=== PATIENT | male | born 1945 | race Caucasian/White ===

== ENCOUNTER 2020-04-08 05:46 | Outpatient (REF) | payer MEDICARE, SELFPAY ==
[2020-04-08 08:39] LABS: MANUAL DIFF FLAG NO
[2020-04-08 08:58] LABS: Basophils Absolute Auto 0.1 X10*3/uL (0.0-0.2); Basophils Percent Auto 0.8 % (0-2); Eosinophils Absolute Auto 0.4 X10*3/uL (0.0-0.4); Eosinophils Percent Auto 6.9 % (0-4); Hematocrit 32.8 % (42-52); Imm Gran Abs Auto 0.02 X10*3/uL (0.00-0.03); Imm Gran Pct Auto 0.3 % (0.0-0.4); Lymphocytes Absolute Auto 1.9 X10*3/uL (1.2-4.9); Mean Corpuscular HGB Conc 33.5 g/dl (31.0-36.0); Mean Corpuscular Hemoglobin 31.4 pg (27.0-33.0); Mean Corpuscular Volume 93.7 fL (80-98); Mean Platelet Volume 8.6 fL (9.4-12.4); Monocytes Absolute Auto 0.8 X10*3/uL (0.1-1.2); Monocytes Percent Auto 12.1 % (2-11); Neutrophils Absolute Auto 3.2 X10*3/uL (2.0-8.3); Neutrophils Percent Auto 50.9 % (45-73); Platelet Count 353 X10*3/uL (160-400); Red Cell Distribution Width 12.5 % (11.0-16.0); White Blood Count 6.4 X10*3/uL (4.8-10.8)
[2020-04-08 09:12] LABS: Alanine Aminotransferase 11 U/L (0-40); Albumin Level 3.7 g/dL (3.5-5.0); Alkaline Phosphatase 66 U/L (39-117); Anion Gap 11 (12-20); Aspartate Amino Transferase 13 U/L (5-37); Bilirubin Total 0.4 mg/dL (0.0-1.0); Blood Urea Nitrogen 7 mg/dL (9-16); Calcium 8.4 mg/dL (8.4-10.2); Carbon Dioxide 27 mmol/L (22-29); Chloride 96 mmol/L (96-108); Estimated Glomerular Filt Rate > 60; Glucose Fasting 95 mg/dL (60-99); Potassium 4.2 mmol/l (3.3-5.1); Sodium 130 mmol/L (135-145); Total Protein 6.1 g/dL (6.5-8.0)
== END 2020-04-08 05:47 | disposition home or self-care (01) ==
LOC: HO.HSH3N 05:46
PROVIDERS: Visit Provider Internal Medicine
DX: R11.10 Vomiting, unspecified (principal); R19.5 Other fecal abnormalities; J44.9 Chronic obstructive pulmonary disease, unspecified
CPT/HCPCS: 36415; 80053; 85025

== ENCOUNTER 2020-04-18 10:16 | Outpatient (REF) | payer MEDICARE, SELFPAY ==
[2020-04-18 15:38] LABS: SARS COV2 PCR INHOUSE NEGATIVE (Negative)
== END 2020-04-18 10:17 | disposition home or self-care (01) ==
LOC: HO.HSH3N 10:16
PROVIDERS: Visit Provider Internal Medicine Critical Care Medicine
DX: Z20.828 Contact with and (suspected) exposure to other viral communicable diseases (principal)
CPT/HCPCS: 87635

== ENCOUNTER 2020-04-20 06:27 | Outpatient (REF) | payer MEDICARE, SELFPAY ==
[2020-04-20 10:16] LABS: Vitamin D 25-OH Total 31.7 ng/mL (>30)
== END 2020-04-20 06:28 | disposition home or self-care (01) ==
LOC: HO.HSH3N 06:27
PROVIDERS: Visit Provider Internal Medicine
DX: E55.9 Vitamin D deficiency, unspecified (principal)
CPT/HCPCS: 82306

== ENCOUNTER 2020-05-03 07:41 | Outpatient (REF) | payer MEDICARE, SELFPAY ==
[2020-05-03 08:44] LABS: MANUAL DIFF FLAG NO
[2020-05-03 08:46] LABS: Basophils Percent Auto 0.4 % (0-2); Eosinophils Absolute Auto 0.6 X10*3/uL (0.0-0.4); Eosinophils Percent Auto 7.9 % (0-4); Hematocrit 33.3 % (42-52); Hemoglobin 11.4 g/dl (14.0-18.0); Imm Gran Abs Auto 0.03 X10*3/uL (0.00-0.03); Imm Gran Pct Auto 0.4 % (0.0-0.4); Lymphocytes Absolute Auto 2.3 X10*3/uL (1.2-4.9); Lymphocytes Percent Auto 31.9 % (20-40); Mean Corpuscular HGB Conc 34.2 g/dl (31.0-36.0); Mean Corpuscular Hemoglobin 32.2 pg (27.0-33.0); Mean Corpuscular Volume 94.1 fL (80-98); Mean Platelet Volume 8.5 fL (9.4-12.4); Monocytes Absolute Auto 0.8 X10*3/uL (0.1-1.2); Neutrophils Absolute Auto 3.4 X10*3/uL (2.0-8.3); Neutrophils Percent Auto 48.4 % (45-73); Platelet Count 355 X10*3/uL (160-400); Red Blood Count 3.54 X10*6/uL (4.60-5.80); Red Cell Distribution Width 12.3 % (11.0-16.0); White Blood Count 7.1 X10*3/uL (4.8-10.8)
[2020-05-03 10:14] LABS: Alanine Aminotransferase 11 U/L (0-40); Albumin Level 3.5 g/dL (3.5-5.0); Alkaline Phosphatase 67 U/L (39-117); Anion Gap 13 (12-20); Aspartate Amino Transferase 13 U/L (5-37); Bilirubin Total 0.5 mg/dL (0.0-1.0); Blood Urea Nitrogen 7 mg/dL (9-16); Calcium 8.1 mg/dL (8.4-10.2); Carbon Dioxide 26 mmol/L (22-29); Chloride 99 mmol/L (96-108); Estimated Glomerular Filt Rate > 60; Glucose Fasting 108 mg/dL (60-99); Lipase 19 U/L (8-78); Potassium 4.5 mmol/l (3.3-5.1); Sodium 133 mmol/L (135-145); Total Protein 5.8 g/dL (6.5-8.0)
== END 2020-05-03 07:42 | disposition home or self-care (01) ==
LOC: HO.HSH3N 07:41
PROVIDERS: Visit Provider Internal Medicine
DX: K86.1 Other chronic pancreatitis (principal); F03.90 Unspecified dementia, unspecified severity, without behavioral disturbance, psychotic disturbance, mood disturbance, and anxiety; F10.10 Alcohol abuse, uncomplicated
CPT/HCPCS: 36415; 80053; 83690; 85025

== ENCOUNTER 2020-06-07 06:59 | Outpatient (REF) | payer MEDICARE, SELFPAY ==
[2020-06-07 08:23] LABS: MANUAL DIFF FLAG NO
[2020-06-07 08:28] LABS: Basophils Percent Auto 0.6 % (0-2); Eosinophils Absolute Auto 0.6 X10*3/uL (0.0-0.4); Eosinophils Percent Auto 8.6 % (0-4); Hematocrit 34.6 % (42-52); Hemoglobin 11.8 g/dl (14.0-18.0); Imm Gran Abs Auto 0.04 X10*3/uL (0.00-0.03); Imm Gran Pct Auto 0.6 % (0.0-0.4); Immature Retic Fraction 12.7 % (2.3-13.4); Lymphocytes Absolute Auto 2.6 X10*3/uL (1.2-4.9); Lymphocytes Percent Auto 38.2 % (20-40); Mean Corpuscular HGB Conc 34.1 g/dl (31.0-36.0); Mean Corpuscular Hemoglobin 31.7 pg (27.0-33.0); Mean Platelet Volume 8.8 fL (9.4-12.4); Monocytes Absolute Auto 0.8 X10*3/uL (0.1-1.2); Monocytes Percent Auto 11.3 % (2-11); Neutrophils Absolute Auto 2.8 X10*3/uL (2.0-8.3); Neutrophils Percent Auto 40.7 % (45-73); Platelet Count 378 X10*3/uL (160-400); Red Blood Count 3.72 X10*6/uL (4.60-5.80); Red Cell Distribution Width 12.3 % (11.0-16.0); Reticulocyte Percent 1.9 % (0.5-1.8); White Blood Count 6.9 X10*3/uL (4.8-10.8)
[2020-06-07 08:42] LABS: Iron 40 mcg/dL (45-160); Percent Iron Saturation 13 % (15-50); Total Iron Binding Capacity 319 mcg/dL (228-428); Unsaturated Iron Binding 279 ug/dL
[2020-06-07 09:12] LABS: Thyroid Stimulating Hormone 5.13 uIU/mL (0.32-4.0)
[2020-06-07 09:41] LABS: Vitamin B12 418 pg/mL (200-900)
[2020-06-07 09:45] LABS: Ferritin 96 ng/mL (20-250)
== END 2020-06-07 07:00 | disposition home or self-care (01) ==
LOC: HO.HSH3N 06:59
PROVIDERS: Visit Provider Internal Medicine
DX: K86.1 Other chronic pancreatitis (principal); F32.9 Major depressive disorder, single episode, unspecified
CPT/HCPCS: 36415; 82607; 82728; 82746; 83540; 84443; 85025; 85045

== ENCOUNTER 2020-07-27 10:23 | Outpatient (REF) | payer MEDICARE, SELFPAY ==
[2020-07-27 11:32] LABS: MANUAL DIFF FLAG NO
[2020-07-27 11:37] LABS: Basophils Percent Auto 0.6 % (0-2); Eosinophils Absolute Auto 0.5 X10*3/uL (0.0-0.4); Eosinophils Percent Auto 7.8 % (0-4); Hematocrit 34.2 % (42-52); Hemoglobin 11.4 g/dl (14.0-18.0); Imm Gran Abs Auto 0.04 X10*3/uL (0.00-0.03); Imm Gran Pct Auto 0.6 % (0.0-0.4); Lymphocytes Absolute Auto 2.6 X10*3/uL (1.2-4.9); Lymphocytes Percent Auto 38.5 % (20-40); Mean Corpuscular HGB Conc 33.3 g/dl (31.0-36.0); Mean Corpuscular Hemoglobin 31.3 pg (27.0-33.0); Mean Platelet Volume 8.6 fL (9.4-12.4); Monocytes Absolute Auto 0.6 X10*3/uL (0.1-1.2); Monocytes Percent Auto 8.9 % (2-11); Neutrophils Absolute Auto 2.9 X10*3/uL (2.0-8.3); Neutrophils Percent Auto 43.6 % (45-73); Platelet Count 358 X10*3/uL (160-400); Red Blood Count 3.64 X10*6/uL (4.60-5.80); Red Cell Distribution Width 12.2 % (11.0-16.0); White Blood Count 6.6 X10*3/uL (4.8-10.8)
== END 2020-07-27 10:24 | disposition home or self-care (01) ==
LOC: HO.HSH3N 10:23
PROVIDERS: Visit Provider Internal Medicine
DX: D64.9 Anemia, unspecified (principal)
CPT/HCPCS: 36415; 85025

== ENCOUNTER 2020-10-07 14:30 | Outpatient (REF) | payer MEDICARE, SELFPAY ==
[2020-10-07 14:46] LABS: Hematocrit 32.7 % (42-52); Hemoglobin 10.9 g/dl (14.0-18.0); Mean Corpuscular HGB Conc 33.3 g/dl (31.0-36.0); Mean Corpuscular Hemoglobin 30.5 pg (27.0-33.0); Mean Corpuscular Volume 91.6 fL (80-98); Mean Platelet Volume 8.2 fL (9.4-12.4); Platelet Count 471 X10*3/uL (160-400); Red Blood Count 3.57 X10*6/uL (4.60-5.80); Red Cell Distribution Width 12.3 % (11.0-16.0); White Blood Count 7.8 X10*3/uL (4.8-10.8)
[2020-10-07 15:14] LABS: Uric Acid 4.1 mg/dL (3.4-7.0)
== END 2020-10-07 14:31 | disposition home or self-care (01) ==
LOC: HO.HSH3N 14:30
PROVIDERS: Visit Provider Internal Medicine
DX: M10.9 Gout, unspecified (principal)
CPT/HCPCS: 36415; 84550; 85027

== ENCOUNTER 2020-10-11 05:44 | Outpatient (REF) | payer MEDICARE, SELFPAY ==
[2020-10-11 08:47] LABS: Erythrocyte Sedimentation Rate 77 MM/HR (0-15)
== END 2020-10-11 05:45 | disposition home or self-care (01) ==
LOC: HO.HSH3N 05:44
PROVIDERS: Visit Provider Internal Medicine
DX: D64.9 Anemia, unspecified (principal)
CPT/HCPCS: 36415; 85652

== ENCOUNTER 2020-10-18 06:42 | Outpatient (REF) | payer MEDICARE, SELFPAY ==
[2020-10-18 08:45] LABS: MANUAL DIFF FLAG NO
[2020-10-18 09:21] LABS: Basophils Absolute Auto 0.1 X10*3/uL (0.0-0.2); Basophils Percent Auto 0.7 % (0-2); Eosinophils Absolute Auto 0.4 X10*3/uL (0.0-0.4); Eosinophils Percent Auto 5.1 % (0-4); Hemoglobin 10.7 g/dl (14.0-18.0); Imm Gran Abs Auto 0.05 X10*3/uL (0.00-0.03); Imm Gran Pct Auto 0.6 % (0.0-0.4); Lymphocytes Absolute Auto 1.7 X10*3/uL (1.2-4.9); Lymphocytes Percent Auto 20.1 % (20-40); Mean Corpuscular HGB Conc 33.4 g/dl (31.0-36.0); Mean Corpuscular Hemoglobin 30.4 pg (27.0-33.0); Mean Corpuscular Volume 90.9 fL (80-98); Mean Platelet Volume 8.4 fL (9.4-12.4); Monocytes Percent Auto 12.5 % (2-11); Neutrophils Absolute Auto 5.1 X10*3/uL (2.0-8.3); Platelet Count 638 X10*3/uL (160-400); Red Blood Count 3.52 X10*6/uL (4.60-5.80); Red Cell Distribution Width 12.5 % (11.0-16.0); White Blood Count 8.3 X10*3/uL (4.8-10.8)
== END 2020-10-18 06:43 | disposition home or self-care (01) ==
LOC: HO.HSH3N 06:42
PROVIDERS: Visit Provider Internal Medicine
DX: D64.9 Anemia, unspecified (principal)
CPT/HCPCS: 36415; 85025

== ENCOUNTER 2020-10-20 06:19 | Outpatient (REF) | payer MEDICARE, SELFPAY ==
[2020-10-20 08:37] LABS: Rheumatoid Factor < 15.0 IU/mL (<15.0)
[2020-10-21 22:42] LABS: Anti Nuclear Antibody Pattern Nuclear, Homogeneous; Anti Nuclear Antibody Screen POSITIVE (NEGATIVE)
== END 2020-10-20 06:20 | disposition home or self-care (01) ==
LOC: HO.HSH3N 06:19
PROVIDERS: Visit Provider Internal Medicine
DX: M25.50 Pain in unspecified joint (principal)
CPT/HCPCS: 36415; 86038; 86039; 86431

== ENCOUNTER 2021-01-11 | Outpatient (REF) | payer MEDICARE, SELFPAY ==
[2021-01-11 09:09] LABS: Anion Gap 18 (12-20); Blood Urea Nitrogen 8 mg/dL (9-16); Calcium 8.3 mg/dL (8.4-10.2); Carbon Dioxide 22 mmol/L (22-29); Chloride 94 mmol/L (96-108); Estimated Glomerular Filt Rate > 60; Glucose Fasting 109 mg/dL (60-99); Potassium 4.5 mmol/L (3.3-5.1); Sodium 129 mmol/L (135-145)
== END 2021-01-11 00:01 | disposition home or self-care (01) ==
LOC: HO.HSH3N
PROVIDERS: Visit Provider Nurse Practitioner Acute Care
DX: E03.9 Hypothyroidism, unspecified (principal); E87.1 Hypo-osmolality and hyponatremia
CPT/HCPCS: 36415; 80048; 84443

== ENCOUNTER 2021-01-31 14:42 | Outpatient (REF) | payer MEDICARE, SELFPAY ==
[2021-01-31 15:03] LABS: MANUAL DIFF FLAG NO
[2021-01-31 15:05] LABS: Basophils Percent Auto 0.4 % (0-2); Eosinophils Absolute Auto 0.2 X10*3/uL (0.0-0.4); Eosinophils Percent Auto 1.7 % (0-4); Hematocrit 29.8 % (42-52); Hemoglobin 9.1 g/dl (14.0-18.0); Imm Gran Abs Auto 0.09 X10*3/uL (0.00-0.03); Imm Gran Pct Auto 0.8 % (0.0-0.4); Lymphocytes Absolute Auto 2.2 X10*3/uL (1.2-4.9); Lymphocytes Percent Auto 20.1 % (20-40); Mean Corpuscular HGB Conc 30.5 g/dl (31.0-36.0); Mean Corpuscular Hemoglobin 27.8 pg (27.0-33.0); Mean Corpuscular Volume 91.1 fL (80-98); Mean Platelet Volume 8.7 fL (9.4-12.4); Monocytes Absolute Auto 0.9 X10*3/uL (0.1-1.2); Monocytes Percent Auto 8.2 % (2-11); Neutrophils Absolute Auto 7.5 X10*3/uL (2.0-8.3); Neutrophils Percent Auto 68.8 % (45-73); Platelet Count 824 X10*3/uL (160-400); Red Blood Count 3.27 X10*6/uL (4.60-5.80); Red Cell Distribution Width 14.9 % (11.0-16.0); White Blood Count 10.9 X10*3/uL (4.8-10.8)
[2021-01-31 15:23] LABS: Anion Gap 17 (12-20); Blood Urea Nitrogen 15 mg/dL (9-16); C Reactive Protein 25.12 mg/dL (< or = 0.50); Calcium 8.7 mg/dL (8.4-10.2); Carbon Dioxide 25 mmol/L (22-29); Chloride 105 mmol/L (96-108); Estimated Glomerular Filt Rate > 60; Glucose Random 100 mg/dL (60-115); Potassium 4.5 mmol/L (3.3-5.1); Sodium 142 mmol/L (135-145)
[2021-01-31 15:34] LABS: Valproate 28.5 mcg/mL (50.0-100.0)
[2021-01-31 16:15] LABS: Erythrocyte Sedimentation Rate 111 MM/HR (0-15)
== END 2021-01-31 14:43 | disposition home or self-care (01) ==
LOC: HO.HSH3N 14:42
PROVIDERS: Visit Provider Nurse Practitioner Acute Care
DX: M13.80 Other specified arthritis, unspecified site (principal); E87.1 Hypo-osmolality and hyponatremia; Z79.899 Other long term (current) drug therapy
CPT/HCPCS: 36415; 80048; 80164; 85025; 85652; 86140

== ENCOUNTER 2021-03-20 06:03 | Outpatient (REF) | payer MEDICARE, SELFPAY ==
[2021-03-20 08:26] LABS: MANUAL DIFF FLAG NO
[2021-03-20 08:39] LABS: Basophils Percent Auto 0.2 % (0-2); Eosinophils Percent Auto 0.4 % (0-4); Hematocrit 31.4 % (42-52); Hemoglobin 10.2 g/dl (14.0-18.0); Imm Gran Abs Auto 0.22 X10*3/uL (0.00-0.03); Lymphocytes Absolute Auto 3.2 X10*3/uL (1.2-4.9); Lymphocytes Percent Auto 29.3 % (20-40); Mean Corpuscular HGB Conc 32.5 g/dl (31.0-36.0); Mean Corpuscular Hemoglobin 30.5 pg (27.0-33.0); Mean Platelet Volume 8.4 fL (9.4-12.4); Monocytes Absolute Auto 0.8 X10*3/uL (0.1-1.2); Monocytes Percent Auto 7.7 % (2-11); Neutrophils Absolute Auto 6.5 X10*3/uL (2.0-8.3); Neutrophils Percent Auto 60.4 % (45-73); Platelet Count 409 X10*3/uL (160-400); Red Blood Count 3.34 X10*6/uL (4.60-5.80); Red Cell Distribution Width 18.3 % (11.0-16.0); White Blood Count 10.8 X10*3/uL (4.8-10.8)
[2021-03-20 08:42] LABS: Anion Gap 13 (12-20); Blood Urea Nitrogen 10 mg/dL (9-16); C Reactive Protein 1.11 mg/dL (< or = 0.50); Calcium 8.8 mg/dL (8.4-10.2); Carbon Dioxide 30 mmol/L (22-29); Chloride 94 mmol/L (96-108); Estimated Glomerular Filt Rate > 60; Glucose Fasting 106 mg/dL (60-99); Potassium 4.7 mmol/L (3.3-5.1); Sodium 132 mmol/L (135-145)
[2021-03-20 09:19] LABS: Erythrocyte Sedimentation Rate 18 MM/HR (0-15)
== END 2021-03-20 06:04 | disposition home or self-care (01) ==
LOC: HO.HSH3N 06:03
PROVIDERS: Visit Provider Nurse Practitioner Acute Care
DX: M31.6 Other giant cell arteritis (principal)
CPT/HCPCS: 36415; 80048; 85025; 85652; 86140

== ENCOUNTER 2021-05-05 06:04 | Outpatient (REF) | payer MEDICARE, SELFPAY ==
[2021-05-05 08:10] LABS: Alanine Aminotransferase 18 U/L (0-40); Albumin Level 3.7 g/dL (3.5-5.0); Alkaline Phosphatase 52 U/L (39-117); Anion Gap 13 (12-20); Aspartate Amino Transferase 10 U/L (5-37); Bilirubin Direct < 0.2 mg/dL (0.0-0.5); Bilirubin Total 0.3 mg/dL (0.0-1.0); Blood Urea Nitrogen 18 mg/dL (9-16); Calcium 8.7 mg/dL (8.4-10.2); Carbon Dioxide 30 mmol/L (22-29); Chloride 99 mmol/L (96-108); Estimated Glomerular Filt Rate > 60; Glucose Random 80 mg/dL (60-115); Iron 34 mcg/dL (45-160); Percent Iron Saturation 11 % (15-50); Potassium 4.3 mmol/L (3.3-5.1); Sodium 138 mmol/L (135-145); Total Iron Binding Capacity 300 mcg/dL (228-428); Total Protein 5.8 g/dL (6.5-8.0); Unsaturated Iron Binding 266 ug/dL
[2021-05-11 11:26] LABS: Vitamin B1 22 nmol/L (8-30)
== END 2021-05-05 06:05 | disposition home or self-care (01) ==
LOC: HO.HSH3N 06:04
PROVIDERS: Visit Provider Nurse Practitioner Acute Care
DX: D64.9 Anemia, unspecified (principal)
CPT/HCPCS: 36415; 80048; 80076; 83540; 84425

== ENCOUNTER 2021-07-17 07:23 | Outpatient (REF) | payer MEDICARE, SELFPAY ==
[2021-07-17 10:16] LABS: Alanine Aminotransferase 27 U/L (0-40); Alkaline Phosphatase 47 U/L (39-117); Anion Gap 17 (12-20); Aspartate Amino Transferase 19 U/L (5-37); Bilirubin Total 0.3 mg/dL (0.0-1.0); Blood Urea Nitrogen 9 mg/dL (9-16); C Reactive Protein 0.62 mg/dL (< or = 0.50); Calcium 9.3 mg/dL (8.4-10.2); Carbon Dioxide 25 mmol/L (22-29); Chloride 97 mmol/L (96-108); Estimated Glomerular Filt Rate > 60; Glucose Random 141 mg/dL (60-115); Potassium 4.4 mmol/L (3.3-5.1); Sodium 135 mmol/L (135-145); Total Protein 6.7 g/dL (6.5-8.0)
[2021-07-17 10:36] LABS: Vitamin D 25-OH Total 46.6 ng/mL (>30)
== END 2021-07-17 07:24 | disposition home or self-care (01) ==
LOC: HO.HSH3N 07:23
PROVIDERS: Visit Provider Nurse Practitioner Acute Care
DX: F39 Unspecified mood [affective] disorder (principal); Z79.899 Other long term (current) drug therapy
CPT/HCPCS: 36415; 80053; 80164; 82306; 85025; 85652; 86140

== ENCOUNTER 2021-07-18 06:28 | Outpatient (REF) | payer MEDICARE, SELFPAY ==
[2021-07-18 07:42] LABS: MANUAL DIFF FLAG NO
[2021-07-18 07:44] LABS: Basophils Percent Auto 0.3 % (0-2); Eosinophils Absolute Auto 0.1 X10*3/uL (0.0-0.4); Hematocrit 33.7 % (42.0-52.0); Hemoglobin 10.9 g/dl (14.0-18.0); Imm Gran Pct Auto 1.8 % (0.0-0.4); Lymphocytes Absolute Auto 4.9 X10*3/uL (1.2-4.9); Lymphocytes Percent Auto 43.8 % (20-40); Mean Corpuscular HGB Conc 32.3 g/dl (31.0-36.0); Mean Corpuscular Hemoglobin 32.6 pg (27.0-33.0); Mean Corpuscular Volume 100.9 fL (80.0-98.0); Mean Platelet Volume 8.5 fL (9.4-12.4); Monocytes Absolute Auto 0.8 X10*3/uL (0.1-1.2); Monocytes Percent Auto 7.3 % (2-11); Neutrophils Absolute Auto 5.1 x10*3/uL (2.0-8.3); Neutrophils Percent Auto 45.8 % (45-73); Platelet Count 443 X10*3/uL (160-400); Red Blood Count 3.34 X10*6/uL (4.60-5.80); Red Cell Distribution Width 13.1 % (11.0-16.0); White Blood Count 11.1 X10*3/uL (4.8-10.8)
[2021-07-18 08:22] LABS: Erythrocyte Sedimentation Rate 21 MM/HR (0-15)
== END 2021-07-18 06:29 | disposition home or self-care (01) ==
LOC: HO.HSH3N 06:28
PROVIDERS: Visit Provider Nurse Practitioner Acute Care
DX: F39 Unspecified mood [affective] disorder (principal)
CPT/HCPCS: 36415; 85025; 85652

== ENCOUNTER 2021-08-19 03:54 | Emergency (ER) | payer MEDICARE, SELFPAY ==
--- NOTE | ~2021-08-19 | CT_ITS ---
EXAMINATION: CT ABDOMEN AND PELVIS WITH CONTRAST CLINICAL INFORMATION: Right upper quadrant pain COMPARISON: None TECHNIQUE: Multidetector volumetric images were obtained from the superior aspect of the liver through the pubic symphysis following administration 85 mL of Omnipaque 350 intravenous contrast. Sagittal and coronal reformatted images were obtained on the technologist's workstation. Oral contrast: Yes This CT examination was performed using dose optimization techniques as appropriate, variously including the following: *Automated exposure control *Adjustment of mA and/or kV according to patient size (this includes techniques or standardized protocols for targeted exams where dose is matched to indication/reason for exam; i.e. extremities or head) *Use of iterative reconstruction technique DLP: 562 mGy-cm FINDINGS: LUNG BASES: The visualized lung bases are unremarkable. LIVER, GALLBLADDER, AND BILIARY TREE: The liver is normal in size, shape, and attenuation. No focal hepatic lesion or biliary ductal dilatation is present. The gallbladder is normal in size. No gallstones are appreciated by CT scan. The gallbladder wall appears slightly thickened and indistinct. Appearance is questionable for possible cholecystitis. PANCREAS: Unremarkable. SPLEEN: Unremarkable. ADRENAL GLANDS: Unremarkable. KIDNEYS AND URETERS: The kidneys are normal in size, shape, and attenuation. No hydronephrosis, hydroureter, or calculi seen. No perinephric stranding. BLADDER: The bladder wall is slightly trabeculated. GASTROINTESTINAL TRACT: The small and large bowel are unremarkable. The appendix is not identified with certainty. There are no inflammatory changes seen in the right lower quadrant. There is an esophageal hernia. ABDOMINAL WALL: Small umbilical hernia containing fat. LYMPH NODES: Normal. VASCULAR: Atherosclerotic disease. No aneurysm. PELVIC VISCERA: Unremarkable. OSSEOUS STRUCTURES: There are degenerative changes of the spine. There are mild compression fractures of the T12 and L3 vertebral bodies. The L3 vertebral body superior endplate appears slightly sclerotic and may be more recent. Clinical correlation recommended. CT/CT abdomen pelvis w con IMPRESSION: Normal size gallbladder. No gallstones seen by CT scan. The gallbladder wall appears slightly thickened and indistinct. Possible cholecystitis should be considered. Esophageal hernia. Slightly trabeculated bladder wall. T12 and L3 vertebral body compression fractures. Fleischner guidelines were followed.
--- NOTE | ~2021-08-19 | US_ITS ---
EXAMINATION: US ABDOMEN LIMITED CLINICAL INFORMATION: Right upper quadrant pain. COMPARISON: CT abdomen and pelvis earlier this morning TECHNIQUE: Real-time imaging of the gallbladder was performed upon request. FINDINGS: The gallbladder is physiologically distended. Several mobile gallstones are noted. Echogenic bile is also appreciated. There is mild gallbladder wall thickening measuring up to 4 mm. A trace amount of fluid is present within the gallbladder wall. Sonographic Darnell's sign was elicited. The common bile duct is normal in size measuring 4 mm. US/US abdomen limited IMPRESSION: Cholelithiasis. Other ultrasound findings suggest possible acute cholecystitis. Clinical correlation is recommended.
[2021-08-19 04:06] VITALS: BP 167/92; BP 180/100; PULSE 110; PULSE 96; RESP 20; TEMP 36.6; O2SAT 98; O2SAT 99; BMI 25.4
[2021-08-19 04:33] LABS: MANUAL DIFF FLAG NO
[2021-08-19 04:35] LABS: Basophils Percent Auto 0.3 % (0-2); Eosinophils Absolute Auto 0.1 X10*3/uL (0.0-0.4); Eosinophils Percent Auto 1.1 % (0-4); Hematocrit 37.9 % (42.0-52.0); Hemoglobin 12.6 g/dl (14.0-18.0); Imm Gran Abs Auto 0.12 X10*3/uL (0.00-0.03); Lymphocytes Percent Auto 32.5 % (20-40); Mean Corpuscular HGB Conc 33.2 g/dl (31.0-36.0); Mean Corpuscular Hemoglobin 33.1 pg (27.0-33.0); Mean Corpuscular Volume 99.5 fL (80.0-98.0); Mean Platelet Volume 8.4 fL (9.4-12.4); Monocytes Absolute Auto 0.9 X10*3/uL (0.1-1.2); Monocytes Percent Auto 7.5 % (2-11); Neutrophils Absolute Auto 7.1 x10*3/uL (2.0-8.3); Neutrophils Percent Auto 57.6 % (45-73); Platelet Count 381 X10*3/uL (160-400); Red Blood Count 3.81 X10*6/uL (4.60-5.80); Red Cell Distribution Width 12.9 % (11.0-16.0); White Blood Count 12.3 X10*3/uL (4.8-10.8)
--- NOTE | 2021-08-19 04:57 | ECG_ITS ---
Test Reason : abd pain Blood Pressure : / mmHG Vent. Rate : 085 BPM Atrial Rate : 085 BPM P-R Int : 130 ms QRS Dur : 076 ms QT Int : 368 ms P-R-T Axes : 044 029 055 degrees QTc Int : 437 ms Normal sinus rhythm Normal ECG No previous ECGs available Referred By: Penny Hale Electronically Signed By:YADIEL KAPOOR MD
[2021-08-19 04:58] LABS: Alanine Aminotransferase 18 U/L (0-40); Albumin Level 4.1 g/dL (3.5-5.0); Alkaline Phosphatase 43 U/L (39-117); Anion Gap 19 (12-20); Aspartate Amino Transferase 27 U/L (5-37); Bilirubin Total 0.2 mg/dL (0.0-1.0); Blood Urea Nitrogen 14 mg/dL (9-16); Calcium 9.6 mg/dL (8.4-10.2); Carbon Dioxide 24 mmol/L (22-29); Chloride 99 mmol/L (96-108); Creatinine Clr Calc Pharmacy 76.6; Estimated Glomerular Filt Rate > 60; Glucose Random 110 mg/dL (60-115); Lipase 25 U/L (8-78); Potassium 4.8 mmol/L (3.3-5.1); Sodium 137 mmol/L (135-145)
--- NOTE | 2021-08-19 05:58 | ED_ITS ---
HPI - Abdominal Pain General Chief Complaint: Abdominal Pain Stated Complaint: R rib pain Time Seen by Provider: 08/19/21 04:57 Source: patient Mode of arrival: EMS History of Present Illness HPI narrative: 75-year-old male without significant past medical history states that he woke up to right upper quadrant abdominal pain that radiates around the posterior edge of his ribs that has been associated with nausea and vomiting as well as chills denies any diarrhea or urinary symptoms and otherwise denies any shortness of breath or chest pain. Related Data Allergies Allergy/AdvReac Type Severity Reaction Status Date / Time No Known Allergies Allergy Verified 08/19/21 04:17 Review of Systems Review of Systems Pertinent positives and negatives as stated in HPI 10 point review of systems is otherwise negative. PMFSH Past Medical History Source: nursing notes reviewed Social History Social History Advance Directives: No Physical Exam ED Vital Signs: Vital Signs - 24 hr 08/19/21 04:06 08/19/21 06:32 08/19/21 07:35 Temperature 97.8 F 98.0 F 97.7 F Pulse Rate 96 86 83 Respiratory Rate 20 16 19 Blood Pressure 167/92 H 126/76 104/61 Pulse Oximetry 99 98 98 BMI result Body Mass Index 25.4 VITAL SIGNS: Reviewed. GENERAL: Well developed, well nourished, in no acute distress. HEAD: Normocephalic/atraumatic EYES: PERRLA, EOMI OROPHARYNX: no oral lesions noted, posterior pharynx clear NECK: Supple, no adenopathy LUNGS: Normal breath sounds. No adventitious sounds or accessory muscle use. SpO2<99> CARDIOVASCULAR: Regular rate and rhythm without noted murmurs, no JVD or lower extremity edema. ABDOMEN: Soft, tenderness at the right upper quadrant, Darnell's positive,, non- distended with bowel sounds. SKIN: Inspection of the skin reveals no rashes NEUROLOGIC: Alert and oriented x 4. Strength and sensation to light touch were grossly intact x 4. Course Course Course Narrative: 75-year-old male with history and clinical presentation suggestive of either cholecystitis or pneumonia, suspect likely cholecystitis based on clinical exam and on review of all investigations patient is noted to have leukocytosis And received antibiotics. 0430: Suspect infection. Review of all investigations findings most consistent with cholecystitis and on ultrasound noted cholelithiasis with gallbladder wall thickening. Case was discussed with Dr. Kulkarni who accepts admission and plans for surgery. MDM - Abdominal Pain Lab Data Result diagrams: 08/19/21 04:28 08/19/21 04:28 Labs: Lab Results 08/19/21 08/19/21 08/19/21 Range/Units 04:28 04:28 06:15 WBC 12.3 H (4.8-10.8) X10*3/uL RBC 3.81 L (4.60-5.80) X10*6/uL Hgb 12.6 L (14.0-18.0) g/dl Hct 37.9 L (42.0-52.0) % MCV 99.5 H (80.0-98.0) fL MCH 33.1 H (27.0-33.0) pg MCHC 33.2 (31.0-36.0) g/dl RDW 12.9 (11.0-16.0) % Plt Count 381 (160-400) X10*3/uL MPV 8.4 L (9.4-12.4) fL Immature Gran % (Auto) 1.0 H (0.0-0.4) % Neut % (Auto) 57.6 (45-73) % Lymph % (Auto) 32.5 (20-40) % [place] % (Auto) 7.5 (2-11) % Eos % (Auto) 1.1 (0-4) % Baso % (Auto) 0.3 (0-2) % Lymph # (Auto) 4.0 (1.2-4.9) X10*3/uL [place] # (Auto) 0.9 (0.1-1.2) X10*3/uL Eos # (Auto) 0.1 (0.0-0.4) X10*3/uL Baso # (Auto) 0.0 (0.0-0.2) X10*3/uL Abs Immat Gran (auto) 0.12 H (0.00-0.03) X10*3/uL Absolute Neuts (auto) 7.1 (2.0-8.3) x10*3/uL Absolute Nucleated RBC 0.000 (0.0-0.012) X10*3/uL Nucleated RBC % (auto) 0.0 (0.0-0.2) /100WBC Sodium 137 (135-145) mmol/L Potassium 4.8 (3.3-5.1) mmol/L Chloride 99 (96-108) mmol/L Carbon Dioxide 24 (22-29) mmol/L Anion Gap 19 (12-20) BUN 14 D (9-16) mg/dL Creatinine 0.82 (0.5-1.4) mg/dL Estim Creat Clear Calc 76.6 Estimated GFR > 60 Random Glucose 110 (60-115) mg/dL Lactic Acid (0.5-2.0) mmol/L Calcium 9.6 (8.4-10.2) mg/dL Total Bilirubin 0.2 (0.0-1.0) mg/dL AST 27 D (5-37) U/L ALT 18 (0-40) U/L Alkaline Phosphatase 43 (39-117) U/L Total Protein 7.0 (6.5-8.0) g/dL Albumin 4.1 (3.5-5.0) g/dL Lipase 25 (8-78) U/L COVID-19 ([facility]) Negative (Negative) COVID-19 Clin Com See Note 08/19/21 Range/Units 06:30 WBC (4.8-10.8) X10*3/uL RBC (4.60-5.80) X10*6/uL Hgb (14.0-18.0) g/dl Hct (42.0-52.0) % MCV (80.0-98.0) fL MCH (27.0-33.0) pg MCHC (31.0-36.0) g/dl RDW (11.0-16.0) % Plt Count (160-400) X10*3/uL MPV (9.4-12.4) fL Immature Gran % (Auto) (0.0-0.4) % Neut % (Auto) (45-73) % Lymph % (Auto) (20-40) % [place] % (Auto) (2-11) % Eos % (Auto) (0-4) % Baso % (Auto) (0-2) % Lymph # (Auto) (1.2-4.9) X10*3/uL [place] # (Auto) (0.1-1.2) X10*3/uL Eos # (Auto) (0.0-0.4) X10*3/uL Baso # (Auto) (0.0-0.2) X10*3/uL Abs Immat Gran (auto) (0.00-0.03) X10*3/uL Absolute Neuts (auto) (2.0-8.3) x10*3/uL Absolute Nucleated RBC (0.0-0.012) X10*3/uL Nucleated RBC % (auto) (0.0-0.2) /100WBC Sodium (135-145) mmol/L Potassium (3.3-5.1) mmol/L Chloride (96-108) mmol/L Carbon Dioxide (22-29) mmol/L Anion Gap (12-20) BUN (9-16) mg/dL Creatinine (0.5-1.4) mg/dL Estim Creat Clear Calc Estimated GFR Random Glucose (60-115) mg/dL Lactic Acid 1.6 (0.5-2.0) mmol/L Calcium (8.4-10.2) mg/dL Total Bilirubin (0.0-1.0) mg/dL AST (5-37) U/L ALT (0-40) U/L Alkaline Phosphatase (39-117) U/L Total Protein (6.5-8.0) g/dL Albumin (3.5-5.0) g/dL Lipase (8-78) U/L COVID-19 ([facility]) (Negative) COVID-19 Clin Com ECG Data Attestation: I personally reviewed and interpreted this ECG as follows: Prior ECG tracings: not available for review Interpretation: NSR, HR - 85, no STEMI, MT /QRS /QTC are within normal limits. Discharge Plan Discharge Clinical Impression: Cholecystitis Patient Disposition: Admitted As Inpatient
[2021-08-19] MEDS: Ketorolac Tromethamine 30 MG/ML VIAL 15 MG IVPUSH (06:05)
[2021-08-19 06:32] VITALS: BP 126/76; PULSE 86; RESP 16; TEMP 36.7; O2SAT 98
[2021-08-19] MEDS: Piperacillin Sodium/Tazobactam 3.375 GM in 0.9 % Sodium Chloride 50 ML IV (06:39)
[2021-08-19 06:45] LABS: Lactic Acid 1.6 mmol/L (0.5-2.0)
[2021-08-19 06:51] LABS: COVID-19 Test Negative (Negative)
[2021-08-19] MEDS: iohexoL 350 MG/ML 100 ML INFUS..BTL 85 ML IV (06:56)
[2021-08-19 07:35] VITALS: BP 104/61; PULSE 83; RESP 19; TEMP 36.5; O2SAT 98
--- NOTE | 2021-08-19 10:01 | PC.NURSE ---
Patient insisting to use restroom instead of using urinal at the bedside although he is unsteady on his feet. Verbally abusive to staff, swearing. When this RN asked patient for urine sample per the provider, patient states How about I piss on them . Patient refusing red, high fall risk socks; patient refusing staff to accompany him into the restroom. Wheelchair provided to assist patient to and from restroom.
--- NOTE | 2021-08-19 10:05 | P.CONGS_ITS ---
History of Present Illness Consult details Consult date: 08/19/21 Requesting physician: Penny Hale Narrative: 75-year-old male patient, resident of the [facility] presenting with a sudden onset of pain in the right lateral chest while turning in bed. He reports the pain is sharp and nonradiating, the pain increases with motion including twisting and turning. He denies a previous episode of similar pain. He denies other medical problems and only previous surgeries are appendectomy. The pain was associated with nausea and vomiting which began after the then set of pain. He subsequently presented to the emergency department. Workup reveale d a mildly elevated WBC of 12.3. Electrolytes and COVID [address] of the abdomen pelvis revealed a normal size gallbladder with no gallstones seen by CT. The gallbladder wall appears slightly thickened and indistinct. This is felt to be possibly due to cholecystitis. An esophageal hernia was identified and slightly trabeculated bladder wall. T12 and L3 vertebral body compression fractures were identified. Subsequent ultrasound of the abdomen does reveal gallstones within the gallbladder with pericholecystic fluid and a sonographic Darnell sign. Common bile duct is normal. Findings are suggestive of acute cholecystitis. Review of Systems Constitutional: Constitutional: Denies chills, Denies fever(s), Denies headache(s) and Denies poor appetite ENT: Denies dizziness and Denies headache(s) Cardiovascular: Cardiovascular: Denies chest pain, Denies rapid heart rate, Denies palpitations and Denies slow heart rate Respiratory: Respiratory: Denies chest congestion, Denies cough, Denies pain on inspiration and Denies wheezing Gastrointestinal: Gastrointestinal: Reports abdominal pain, Denies bloating, Denies change in stool character, Denies constipation, Denies diarrhea, Reports nausea, Reports vomiting and Denies hematemesis Musculoskeletal: Musculoskeletal: Denies back pain, Denies arthralgias, Denies joint swelling and Denies numbness Integumentary/Breasts: Skin/Breast: Denies change in pigmentation, Denies erythema and Denies rash Neurologic: Denies dizziness, Denies headache(s) and Denies numbness Psychiatric: Psychiatric: Denies anxiety and Denies depression Endocrine: Endocrine: Denies palpitations Hematologic/Lymphatic: Hematologic/Lymphatic: Denies easy bleeding, Denies easy bruising and Denies lymphadenopathy Allergic/Immunologic: Allergic/Immunologic: Denies wheezing PMFSH Surgical History Surgical History (Updated 08/19/21 @ 10:12 by Brayan Kulkarni MD) Hx of appendectomy Social History Social History Advance Directives: No Meds Allergies Allergy/AdvReac Type Severity Reaction Status Date / Time No Known Allergies Allergy Verified 08/19/21 04:17 Physical Exam Vital Signs: Vital Signs: Last Vital Signs Temp 97.7 F 08/19/21 07:35 Pulse 83 08/19/21 07:35 Resp 19 08/19/21 07:35 BP 104/61 08/19/21 07:35 Pulse Ox 98 08/19/21 07:35 BMI result Body Mass Index 25.4 Const: General: cooperative, comfortable and well developed Nutritional Appearance: well nourished Orientation/consciousness: patient oriented x3 Eyes: Sclerae: sclerae normal EOM: EOMs intact bilaterally Neck: Neck: Yes normal visual inspection Chest: Other: Tender over the right lateral chest wall, which sharp point tenderness suggestive of a rib fracture Resp: Effort & Inspection: normal respiratory effort, no cough, no respiratory distress and no stridor Cardio: Jugular venous distension: no JVD GI: Inspection: Yes normal to inspection Palpation (GI): Soft to palpation, Tenderness to palpation present (GI) in the RUQ, no guarding and not rigid Skin: General skin exam: dry skin Rashes: no rashes Neuro: General: patient oriented x3 and no focal motor deficits Extrem: General: Yes full ROM and Yes no clubbing, cyanosis or edema Psych: Appearance: grossly normal Results Labs Result diagrams: 08/19/21 04:28 08/19/21 04:28 Labs: Abnormal lab results 08/19/21 Range/Units 04:28 WBC 12.3 H (4.8-10.8) X10*3/uL RBC 3.81 L (4.60-5.80) X10*6/uL Hgb 12.6 L (14.0-18.0) g/dl Hct 37.9 L (42.0-52.0) % MCV 99.5 H (80.0-98.0) fL MCH 33.1 H (27.0-33.0) pg MPV 8.4 L (9.4-12.4) fL Immature Gran % (Auto) 1.0 H (0.0-0.4) % Abs Immat Gran (auto) 0.12 H (0.00-0.03) X10*3/uL Short CBC 08/19/21 Range/Units 04:28 WBC 12.3 H (4.8-10.8) X10*3/uL Hgb 12.6 L (14.0-18.0) g/dl Hct 37.9 L (42.0-52.0) % Plt Count 381 (160-400) X10*3/uL BMP 08/19/21 04:28 Sodium 137 Potassium 4.8 Chloride 99 Carbon Dioxide 24 BUN 14 D Creatinine 0.82 Calcium 9.6 Liver Function 08/19/21 Range/Units 04:28 Total Bilirubin 0.2 (0.0-1.0) mg/dL AST 27 D (5-37) U/L ALT 18 (0-40) U/L Alkaline Phosphatase 43 (39-117) U/L Albumin 4.1 (3.5-5.0) g/dL All other labs normal. Assessment and Plan (1) Cholecystitis: Status: Acute (2) Acute cholecystitis: Status: Acute Plan 75-year-old male patient presenting with a recent onset of abdominal pain in the right lower chest and right upper quadrant. Laboratories revealed an elevated WBC. CT and ultrasound revealed changes within the gallbladder suggestive of acute cholecystitis. Examination also reveals tenderness in the right chest wall and right upper quadrant. Findings are suggestive of acute cholecystitis. I reviewed the findings in detail with the patient and discussed treatment options including a laparoscopic or possible open cholecystectomy. My recommendation would be to proceed with the surgery. After a discussion of the procedure, risks, and alternatives, the patient does not wish to proceed with surgery and would like to be sent home to think about it. If he can tolerate p.o. and is reasonably comfortable would recommend discharge to home with follow-up in the office early next week. Procedures Date of Service Date of Service: 08/19/21
[2021-08-19 10:22] LABS: Appearance Urine CLEAR; Color Urine YELLOW; Glucose Urine UA NEG (NEG); Leukocyte Esterase Urine NEG (NEG); Nitrite Urine NEG (NEG); PH 7.5 (5.0-8.0); Specific Gravity - Urine <= 1.005 (1.005-1.025); UACC Culture Trigger NO; Urine Blood TRACE (NEG); Urine Ketones NEG (NEG); Urine Protein NEG (NEG-TRACE)
--- NOTE | 2021-08-19 10:36 | PHA.MEDREC ---
Pharmacy Consult ? Medication Reconciliation Pharmacy has completed the medication reconciliation. No remarkable issues. María Elena Herring, AngelitaD
[2021-08-19 10:39] LABS: Squamous Epithelial Cell Urine TRACE /LPF; WBC Urine 0 /HPF (0-4)
== END 2021-08-19 14:35 | disposition home or self-care (01) ==
PROVIDERS: Emergency Provider Student in an Organized Health Care Education/Training Program
DX: K81.0 Acute cholecystitis (principal); R10.11 Right upper quadrant pain; Z20.822 Contact with and (suspected) exposure to COVID-19
CPT/HCPCS: 36415; 74177; 76705; 80053; 81001; 83605; 83690; 85025; 87040; 87635; 93005; 96365; 96375; 99284; 99285; J1885; J2543; Q9967

== ENCOUNTER 2021-08-20 14:27 | Outpatient (REF) | payer MEDICARE, SELFPAY ==
[2021-08-20 14:45] LABS: MANUAL DIFF FLAG NO
[2021-08-20 14:46] LABS: Basophils Percent Auto 0.4 % (0-2); Eosinophils Absolute Auto 0.1 X10*3/uL (0.0-0.4); Eosinophils Percent Auto 1.1 % (0-4); Hematocrit 38.3 % (42.0-52.0); Hemoglobin 12.6 g/dl (14.0-18.0); Imm Gran Abs Auto 0.11 X10*3/uL (0.00-0.03); Imm Gran Pct Auto 1.1 % (0.0-0.4); Lymphocytes Absolute Auto 1.2 X10*3/uL (1.2-4.9); Lymphocytes Percent Auto 12.3 % (20-40); Mean Corpuscular HGB Conc 32.9 g/dl (31.0-36.0); Mean Corpuscular Hemoglobin 33.1 pg (27.0-33.0); Mean Corpuscular Volume 100.5 fL (80.0-98.0); Mean Platelet Volume 8.6 fL (9.4-12.4); Monocytes Absolute Auto 0.5 X10*3/uL (0.1-1.2); Monocytes Percent Auto 5.4 % (2-11); Neutrophils Absolute Auto 7.6 x10*3/uL (2.0-8.3); Neutrophils Percent Auto 79.7 % (45-73); Platelet Count 400 X10*3/uL (160-400); Red Blood Count 3.81 X10*6/uL (4.60-5.80); Red Cell Distribution Width 13.1 % (11.0-16.0); White Blood Count 9.6 X10*3/uL (4.8-10.8)
[2021-08-20 15:01] LABS: Alanine Aminotransferase 17 U/L (0-40); Alkaline Phosphatase 47 U/L (39-117); Anion Gap 16 (12-20); Aspartate Amino Transferase 14 U/L (5-37); Bilirubin Total 0.4 mg/dL (0.0-1.0); Blood Urea Nitrogen 15 mg/dL (9-16); Calcium 9.3 mg/dL (8.4-10.2); Carbon Dioxide 27 mmol/L (22-29); Chloride 102 mmol/L (96-108); Estimated Glomerular Filt Rate > 60; Glucose Random 99 mg/dL (60-115); Potassium 4.7 mmol/L (3.3-5.1); Sodium 140 mmol/L (135-145); Total Protein 6.4 g/dL (6.5-8.0)
== END 2021-08-20 14:28 | disposition home or self-care (01) ==
LOC: HO.HSH3N 14:27
PROVIDERS: Internal Medicine; Visit Provider Family Medicine Adult Medicine
DX: K80.10 Calculus of gallbladder with chronic cholecystitis without obstruction (principal)
CPT/HCPCS: 36415; 80053; 85025

== ENCOUNTER 2021-08-21 07:08 | Outpatient (REF) | payer MEDICARE, SELFPAY ==
[2021-08-21 08:33] LABS: MANUAL DIFF FLAG NO
[2021-08-21 08:35] LABS: Basophils Percent Auto 0.2 % (0-2); Eosinophils Absolute Auto 0.2 X10*3/uL (0.0-0.4); Eosinophils Percent Auto 1.8 % (0-4); Hematocrit 32.3 % (42.0-52.0); Hemoglobin 10.7 g/dl (14.0-18.0); Imm Gran Abs Auto 0.06 X10*3/uL (0.00-0.03); Imm Gran Pct Auto 0.7 % (0.0-0.4); Lymphocytes Absolute Auto 3.4 X10*3/uL (1.2-4.9); Lymphocytes Percent Auto 38.5 % (20-40); Mean Corpuscular HGB Conc 33.1 g/dl (31.0-36.0); Mean Corpuscular Hemoglobin 33.1 pg (27.0-33.0); Mean Platelet Volume 8.7 fL (9.4-12.4); Monocytes Absolute Auto 0.7 X10*3/uL (0.1-1.2); Monocytes Percent Auto 8.3 % (2-11); Neutrophils Absolute Auto 4.5 x10*3/uL (2.0-8.3); Neutrophils Percent Auto 50.5 % (45-73); Platelet Count 340 X10*3/uL (160-400); Red Blood Count 3.23 X10*6/uL (4.60-5.80); Red Cell Distribution Width 12.8 % (11.0-16.0); White Blood Count 8.8 X10*3/uL (4.8-10.8)
[2021-08-21 08:48] LABS: Alanine Aminotransferase 14 U/L (0-40); Albumin Level 3.4 g/dL (3.5-5.0); Alkaline Phosphatase 37 U/L (39-117); Anion Gap 13 (12-20); Aspartate Amino Transferase 11 U/L (5-37); Bilirubin Total 0.2 mg/dL (0.0-1.0); Blood Urea Nitrogen 16 mg/dL (9-16); Calcium 8.5 mg/dL (8.4-10.2); Carbon Dioxide 28 mmol/L (22-29); Chloride 103 mmol/L (96-108); Estimated Glomerular Filt Rate > 60; Glucose Random 100 mg/dL (60-115); Potassium 4.3 mmol/L (3.3-5.1); Sodium 140 mmol/L (135-145); Total Protein 5.3 g/dL (6.5-8.0)
== END 2021-08-21 07:09 | disposition home or self-care (01) ==
LOC: HO.HSH3N 07:08
PROVIDERS: Visit Provider Internal Medicine
DX: K80.10 Calculus of gallbladder with chronic cholecystitis without obstruction (principal)
CPT/HCPCS: 36415; 80053; 85025

== ENCOUNTER → 2021-09-01 11:04 | Outpatient (BNVA) | payer MEDICARE, SELFPAY | PROVIDERS: Visit Provider Surgery | DX: K81.0 Acute cholecystitis (principal) | CPT/HCPCS: 99212 ==

== ENCOUNTER 2021-09-15 11:35 | Outpatient (REF) | payer MEDICARE, SELFPAY ==
[2021-09-15 12:52] LABS: MANUAL DIFF FLAG NO
[2021-09-15 12:56] LABS: Basophils Percent Auto 0.3 % (0-2); Eosinophils Absolute Auto 0.1 X10*3/uL (0.0-0.4); Eosinophils Percent Auto 0.8 % (0-4); Hematocrit 36.7 % (42.0-52.0); Hemoglobin 11.9 g/dl (14.0-18.0); Imm Gran Abs Auto 0.09 X10*3/uL (0.00-0.03); Imm Gran Pct Auto 0.9 % (0.0-0.4); Lymphocytes Absolute Auto 1.6 X10*3/uL (1.2-4.9); Lymphocytes Percent Auto 15.5 % (20-40); Mean Corpuscular HGB Conc 32.4 g/dl (31.0-36.0); Mean Corpuscular Hemoglobin 32.6 pg (27.0-33.0); Mean Corpuscular Volume 100.5 fL (80.0-98.0); Mean Platelet Volume 8.7 fL (9.4-12.4); Monocytes Absolute Auto 0.7 X10*3/uL (0.1-1.2); Monocytes Percent Auto 6.3 % (2-11); Neutrophils Absolute Auto 7.8 x10*3/uL (2.0-8.3); Neutrophils Percent Auto 76.2 % (45-73); Platelet Count 396 X10*3/uL (160-400); Red Blood Count 3.65 X10*6/uL (4.60-5.80); Red Cell Distribution Width 12.9 % (11.0-16.0); White Blood Count 10.3 X10*3/uL (4.8-10.8)
[2021-09-15 13:05] LABS: Alanine Aminotransferase 16 U/L (0-40); Albumin Level 3.9 g/dL (3.5-5.0); Alkaline Phosphatase 43 U/L (39-117); Anion Gap 15 (12-20); Aspartate Amino Transferase 13 U/L (5-37); Bilirubin Total 0.3 mg/dL (0.0-1.0); Blood Urea Nitrogen 10 mg/dL (9-16); Calcium 9.1 mg/dL (8.4-10.2); Carbon Dioxide 26 mmol/L (22-29); Chloride 101 mmol/L (96-108); Estimated Glomerular Filt Rate > 60; Glucose Random 108 mg/dL (60-115); Potassium 4.1 mmol/L (3.3-5.1); Sodium 138 mmol/L (135-145); Total Protein 6.2 g/dL (6.5-8.0)
== END 2021-09-15 11:36 | disposition home or self-care (01) ==
LOC: HO.HSH3N 11:35
PROVIDERS: Visit Provider Nurse Practitioner Acute Care
DX: K81.9 Cholecystitis, unspecified (principal)
CPT/HCPCS: 36415; 80053; 85025

== ENCOUNTER 2021-09-18 07:49 | Day surgery (SDC) | payer MEDICARE, SELFPAY ==
[2021-09-14 15:05] VITALS: BMI 25.2
--- NOTE | 2021-09-14 15:33 | P.CONAN_ITS ---
Documented by User: Nilsa Anderson NP 09/14/21 15:37 HPI - Anesthesia Eval Consult details Narrative: 75yo M for Cholecystectomy Laparoscopic,poss open, [facility] resident Optimized per [facility] provider COUNT INCLUDES THE [facility] Active Problems Active Problems: All Active Problems (Updated 09/14/21 @ 13:53 by Chanelle Wallace, SIVA) Acute cholecystitis (Acute) COPD (chronic obstructive pulmonary disease) (Acute) Past Medical History Medical History (Updated 09/14/21 @ 13:53 by Chanelle Wallace RN) Adjustment disorder Anemia Atherosclerotic heart disease Back pain BPH (benign prostatic hyperplasia) Cervicalgia Chronic pancreatitis Chronic sinusitis COPD (chronic obstructive pulmonary disease) Cough Dementia Esophageal hernia GERD (gastroesophageal reflux disease) Giant cell arteritis Headache Hearing loss in left ear History of alcohol abuse History of bladder stone Hx of acute pancreatitis Hx of renal calculi Hx of testicular cancer Hx of traumatic brain injury Major depressive disorder Mood disorder Osteoporosis PVD (peripheral vascular disease) Smoker Temporal arteritis Surgical History Surgical History Hx of appendectomy Social History Social History Are you a primary memory care director to a significant other at home: No Alcohol intake: never Patient Tobacco Use Status: Current everyday Tobacco user Tobacco use type: Cigarette Cigarettes Per Day: 10 Are you DNR?: Yes Advance Directives: Yes Advance Directives Information Provided: No Advance Directives on File: Yes Advance Directives Date on File: 10/18/17 Meds Allergies Allergy/AdvReac Type Severity Reaction Status Date / Time No Known Allergies Allergy Verified 09/14/21 13:58 Home Medications Medication Instructions Recorded Confirmed Last Taken Type acetaminophen 325 mg tablet 650 mg PO TID 08/19/21 09/14/21 08/18/21 History alendronate 70 mg tablet 70 mg PO LANGLEY 08/19/21 09/14/21 08/13/21 History bupropion HCl 150 mg tablet,12 hr 150 mg PO DAILY 08/19/21 09/14/21 08/18/21 History sustained-release divalproex 125 mg tablet,delayed 125 mg PO BID 08/19/21 09/14/21 08/18/21 History release divalproex 250 mg tablet,delayed 250 mg PO BID 08/19/21 09/14/21 08/18/21 History release ferrous sulfate 325 mg (65 mg 325 mg PO DAILY 08/19/21 09/18/21 09/17/21 History iron) tablet fluticasone propionate 50 2 spray INTRANASAL DAILY 08/19/21 09/14/21 08/18/21 History mcg/actuation nasal spray,suspension loperamide 2 mg tablet 2 mg PO Q3H PRN 08/19/21 09/14/21 Unknown History loratadine 10 mg tablet 10 mg PO DAILY 08/19/21 09/14/21 08/18/21 History montelukast 10 mg tablet 10 mg PO BEDTIME 08/19/21 09/14/21 08/18/21 History multivitamin 1 tab PO DAILY 08/19/21 09/14/21 08/18/21 History pantoprazole 40 mg tablet,delayed 40 mg PO BEDTIME 08/19/21 09/14/21 08/18/21 History release prednisone 20 mg tablet 17.5 mg PO DAILY 08/19/21 09/01/21 08/18/21 History prochlorperazine 25 mg rectal 25 mg VA BID PRN 08/19/21 09/14/21 Unknown History suppository Exam Exam Date and Time: September 14, 2021 1533 Height,Weight and Vital Signs: Height 5 ft 9 in Weight 77.564 kg Pertinent Lab Results Pertinent Lab Results: Laboratory Tests 08/21/21 08/21/21 07:15 07:15 WBC 8.8 Hgb 10.7 L Hct 32.3 L Plt Count 340 Sodium 140 Potassium 4.3 Chloride 103 Carbon Dioxide 28 BUN 16 Creatinine 0.82 Narrative Narrative: EKG 08/2021 Vent. Rate : 085 BPM ? ? Atrial Rate : 085 BPM ?? P-R Int : 130 ms? QRS Dur : 076 ms ? ? QT Int : 368 ms ? ? ? P-R-T Axes : 044 029 055 degrees ?? QTc Int : 437 ms ? Normal sinus rhythm Normal ECG No previous ECGs available Assessment and Plan Assessment Anesthesia Assessment: Chart Reviewed Documented by User: Elan Rodriguez MD 09/18/21 09:51 COUNT INCLUDES THE [facility] Past Medical History Medical History (Updated 09/14/21 @ 13:53 by Chanelle Wallace, SIVA) Adjustment disorder Anemia Atherosclerotic heart disease Back pain BPH (benign prostatic hyperplasia) Cervicalgia Chronic pancreatitis Chronic sinusitis COPD (chronic obstructive pulmonary disease) Cough Dementia Esophageal hernia GERD (gastroesophageal reflux disease) Giant cell arteritis Headache Hearing loss in left ear History of alcohol abuse History of bladder stone Hx of acute pancreatitis Hx of renal calculi Hx of testicular cancer Hx of traumatic brain injury Major depressive disorder Mood disorder Osteoporosis PVD (peripheral vascular disease) Smoker Temporal arteritis Family History Family history of problems with anesthesia: No Surgical History Surgical History Hx of appendectomy History of Problems with Anesthesia: No Social History Social History Are you a primary memory care director to a significant other at home: No Alcohol intake: never Patient Tobacco Use Status: Current everyday Tobacco user Tobacco use type: Cigarette Cigarettes Per Day: 10 Are you DNR?: Yes Advance Directives: Yes Advance Directives Information Provided: No Advance Directives on File: Yes Advance Directives Date on File: 10/18/17 Meds Allergies Allergy/AdvReac Type Severity Reaction Status Date / Time No Known Allergies Allergy Verified 09/14/21 13:58 Home Medications Medication Instructions Recorded Confirmed Last Taken Type acetaminophen 325 mg tablet 650 mg PO TID 08/19/21 09/14/21 08/18/21 History alendronate 70 mg tablet 70 mg PO LANGLEY 08/19/21 09/14/21 08/13/21 History bupropion HCl 150 mg tablet,12 hr 150 mg PO DAILY 08/19/21 09/14/21 08/18/21 History sustained-release divalproex 125 mg tablet,delayed 125 mg PO BID 08/19/21 09/14/21 08/18/21 History release divalproex 250 mg tablet,delayed 250 mg PO BID 08/19/21 09/14/21 08/18/21 History release ferrous sulfate 325 mg (65 mg 325 mg PO DAILY 08/19/21 09/18/21 09/17/21 History iron) tablet fluticasone propionate 50 2 spray INTRANASAL DAILY 08/19/21 09/14/21 08/18/21 History mcg/actuation nasal spray,suspension loperamide 2 mg tablet 2 mg PO Q3H PRN 08/19/21 09/14/21 Unknown History loratadine 10 mg tablet 10 mg PO DAILY 08/19/21 09/14/21 08/18/21 History montelukast 10 mg tablet 10 mg PO BEDTIME 08/19/21 09/14/21 08/18/21 History multivitamin 1 tab PO DAILY 08/19/21 09/14/21 08/18/21 History pantoprazole 40 mg tablet,delayed 40 mg PO BEDTIME 08/19/21 09/14/21 08/18/21 History release prednisone 20 mg tablet 17.5 mg PO DAILY 08/19/21 09/01/21 08/18/21 History prochlorperazine 25 mg rectal 25 mg VA BID PRN 08/19/21 09/14/21 Unknown History suppository Exam Airway Mallampati Class: II TM Dist: >3cm Neck ROM: Full Denture: Upper and Lower Heart: no chest pains. Lungs: no oxygen at home. Assessment and Plan Final Anesthetic Review Family History of Problems with Anesthesia: No History of Problems with Anesthesia: No NPO: Yes ASA Class: V Final Preanesthetic Review: No Changes in Pt Med Stat, Meds/Allgs Chart Reviewed, Consent Obtained/Reviewed, Anes Risks/Benef Reviewed and DNR Form (If Appl.) Patient Risk: High Procedure Risk: Intermediate Anesthetic Plan Anesthetic Plan: GA and Agree w/ Assess. and Plan Disposition: Standard PACU
[2021-09-18] VITALS (17 sets, daily range): BP systolic 130–192; BP diastolic 77–106; PULSE 72–97; RESP 12–22; TEMP 36.1–36.5; O2SAT 87–99
--- NOTE | 2021-09-18 09:16 | MHC.SHP ---
Pre-Procedural Eval Section A Date of Service: 09/18/21 The patient is an INPATIENT: No Changes since office visit: Yes Patient answered all questions; No Cold of Flu in the past 2 weeks, No New Medical Problems and No Changes in Medication The History & Physical has been completed within 30 days and I have reviewed it.: Yes Section B Chief Complaint: Acute cholecystitis Allergies: Allergies Allergy/AdvReac Type Severity Reaction Status Date / Time No Known Allergies Allergy Verified 09/14/21 13:58 Plan Diagnosis/Plan: Unchanged I have reviewed the history and physical and performed a pertinent physical examination on my patient. No changes have occurred unless specified.
[2021-09-18] MEDS: Lactated Ringers 1,000 ML 100 ML IVCONT (09:26)
--- NOTE | 2021-09-18 10:50 | P.OP_ITS ---
Operative Note Operative Note Date of Service: 09/18/21 Narrative: Preoperative diagnosis: Acute cholecystitis Postoperative diagnosis: Same Procedure: Laparoscopic cholecystectomy Surgeon: Brayan Kulkarni MD Obiee Report Developer: JACEY Manjarrez Anesthesia: General endotracheal Indications for procedure:75 year old male with complaints of abdominal pain in the epigastrium and RUQ found on ultrasound to have multiple gallstones in the gallbladder. On exam he is noted to be tender in the right uppper quadrant. Operative findings: Non-inflamed gallbladder with multiple calculi Specimen: gallbladder Estimated blood loss:2 mls Complications: none Procedure details: Patient was brought to the OR and placed in a supine position. After administering general anesthesia the patient's abdomen was prepped with ChloraPrep and draped in a sterile fashion. Local anesthesia consisting of 0.5% Sensorcaine without epinephrine was infiltrated in a periumbilical region. A 5 mm incision was made above the umbilicus in a transverse fashion. The Veress needle was then inserted while elevating abdominal cavity with towel clips. After positive drop test the abdomen was insufflated to a pressure of 15 mm of mercury. The Veress needle was then removed and a 5 mm trocar inserted. The camera was inserted in the abdomen explored. A 12 mm trocar was then placed in the epigastrium and two 5 mm trocars placed in the right upper quadrant. The patient was placed in reverse Trendelenburg positioning and rotated to the left. The gallbladder was grasped with the fundus and retracted cephalad.. The infundibulum was then grasped and retracted away from the liver bed. The Dolphin dissected was then used to dissect the peritoneum off the infundibulum to reveal the junction with the cystic duct. Cystic artery was noted slightly medial and posterior to the cystic duct. After obtaining a critical view the cystic duct was doubly clipped and divided. The cystic artery was then doubly clipped and divided. The gallbladder was then dissected off the liver bed using electrocautery with an L hook. Hemostasis was assured all times using the electrocautery. When the gallbladder is completely dissected off the liver bed was placed in an Endo- Catch bag and brought out through the epigastric incision. The gallbladder was sent to pathology for further examination. The abdomen was then re-examined. The liver bed was irrigated and suctioned dry. No bleeding or bile leak could be identified. CO2 was then evacuated and all trocars removed. Fascia was closed at the epigastric incision using a [id number] 0 Polysorb suture. Skin was closed in all incisions using a subcuticular 4 0 Polysorb suture. Sterile dressings consisting of Steri-Strips, 2 x 2 gauze, and Tegaderm were then applied. The patient tolerated the procedure well. Sponge instrument and needle counts reported as correct. The patient was transferred to PACU in stable condition.
[2021-09-18] MEDS: fentaNYL citrate/PF 100 MCG/2 ML VIAL 25 MCG IVPUSH ×4 (11:13→11:30)
[2021-09-18] MEDS: Acetaminophen 325 MG TABLET 650 MG PO (11:43)
[2021-09-18] MEDS: oxyCODONE HCl Immed Release 5 MG TABLET PO (11:44)
== END 2021-09-18 14:21 | disposition home or self-care (01) ==
PROVIDERS: Visit Provider Surgery
PROC: 0FT44ZZ Resection of Gallbladder, Percutaneous Endoscopic Approach (ICD-10-PCS; CPT 47562; principal; 2021-09-18 09:40)
DX: K80.12 Calculus of gallbladder with acute and chronic cholecystitis without obstruction (principal); J44.9 Chronic obstructive pulmonary disease, unspecified; D64.9 Anemia, unspecified; K21.9 Gastro-esophageal reflux disease without esophagitis; I25.10 Atherosclerotic heart disease of native coronary artery without angina pectoris; F03.90 Unspecified dementia, unspecified severity, without behavioral disturbance, psychotic disturbance, mood disturbance, and anxiety; F43.20 Adjustment disorder, unspecified; H91.92 Unspecified hearing loss, left ear; Z79.51 Long term (current) use of inhaled steroids; Z79.899 Other long term (current) drug therapy; F17.210 Nicotine dependence, cigarettes, uncomplicated
CPT/HCPCS: 47562; 88304; 94660; J1100; J2370; J2405; J3010

== ENCOUNTER → 2021-09-26 13:29 | Outpatient (BNVA) | payer MEDICARE, SELFPAY | PROVIDERS: Referring Provider Nurse Practitioner Acute Care; Visit Provider Surgery | DX: K81.0 Acute cholecystitis (principal) | CPT/HCPCS: 99212 ==

== ENCOUNTER 2021-11-20 05:54 | Outpatient (REF) | payer MEDICARE, SELFPAY ==
[2021-11-20 07:53] LABS: C Reactive Protein 0.17 mg/dL (< or = 0.50)
[2021-11-20 08:34] LABS: Erythrocyte Sedimentation Rate 11 MM/HR (0-15)
== END 2021-11-20 05:55 | disposition home or self-care (01) ==
LOC: HO.HSH3N 05:54
PROVIDERS: Visit Provider Internal Medicine
DX: M31.6 Other giant cell arteritis (principal)
CPT/HCPCS: 36415; 85652; 86140

== ENCOUNTER 2022-08-13 07:23 | Outpatient (REF) | payer MEDICARE, SELFPAY ==
[2022-08-13 07:46] LABS: C Reactive Protein 0.62 mg/dL (< or = 0.50)
[2022-08-13 08:18] LABS: Erythrocyte Sedimentation Rate 28 MM/HR (0-15)
== END 2022-08-13 07:24 | disposition home or self-care (01) ==
LOC: HO.HSH3N 07:23
PROVIDERS: Visit Provider Nurse Practitioner
DX: M19.90 Unspecified osteoarthritis, unspecified site (principal)
CPT/HCPCS: 36415; 85652; 86140

== ENCOUNTER 2022-08-15 06:09 | Outpatient (REF) | payer MEDICARE, SELFPAY ==
[2022-08-15 07:04] LABS: Vitamin D 25-OH Total 44.5 ng/mL (>30)
== END 2022-08-15 06:10 | disposition home or self-care (01) ==
LOC: HO.HSH3N 06:09
PROVIDERS: Visit Provider Nurse Practitioner Acute Care
DX: M81.0 Age-related osteoporosis without current pathological fracture (principal)
CPT/HCPCS: 36415; 82306; 82310

== ENCOUNTER 2022-09-24 06:12 | Outpatient (REF) | payer MEDICARE, SELFPAY ==
[2022-09-24 06:25] LABS: MANUAL DIFF FLAG NO
[2022-09-24 06:44] LABS: Basophils Absolute Auto 0.1 X10*3/uL (0.0-0.2); Basophils Percent Auto 0.7 % (0-2); Eosinophils Absolute Auto 0.3 X10*3/uL (0.0-0.4); Eosinophils Percent Auto 4.6 % (0-4); Hematocrit 31.2 % (42.0-52.0); Hemoglobin 10.1 g/dl (14.0-18.0); Imm Gran Abs Auto 0.02 X10*3/uL (0.00-0.03); Imm Gran Pct Auto 0.3 % (0.0-0.4); Lymphocytes Absolute Auto 2.6 X10*3/uL (1.2-4.9); Lymphocytes Percent Auto 38.5 % (20-40); Mean Corpuscular HGB Conc 32.4 g/dl (31.0-36.0); Mean Corpuscular Hemoglobin 31.5 pg (27.0-33.0); Mean Corpuscular Volume 97.2 fL (80.0-98.0); Monocytes Absolute Auto 0.6 X10*3/uL (0.1-1.2); Monocytes Percent Auto 8.5 % (2-11); Neutrophils Absolute Auto 3.2 x10*3/uL (2.0-8.3); Neutrophils Percent Auto 47.4 % (45-73); Platelet Count 351 X10*3/uL (160-400); Red Blood Count 3.21 X10*6/uL (4.60-5.80); Red Cell Distribution Width 12.7 % (11.0-16.0); White Blood Count 6.7 X10*3/uL (4.8-10.8)
[2022-09-24 07:05] LABS: Alanine Aminotransferase 11 U/L (0-40); Albumin Level 3.3 g/dL (3.5-5.0); Alkaline Phosphatase 47 U/L (39-117); Anion Gap 13 (12-20); Aspartate Amino Transferase 12 U/L (5-37); Bilirubin Direct < 0.2 mg/dL (0.0-0.5); Bilirubin Total 0.2 mg/dL (0.0-1.0); Blood Urea Nitrogen 19 mg/dL (9-16); C Reactive Protein 0.65 mg/dL (< or = 0.50); Carbon Dioxide 24 mmol/L (22-29); Chloride 109 mmol/L (96-108); Cholesterol 182 mg/dL; HDL Cholesterol 36 mg/dL; LDL Cholesterol Calculated 118 mg/dl; Potassium 4.2 mmol/L (3.3-5.1); Sodium 142 mmol/L (135-145); Total Protein 5.2 g/dL (6.5-8.0); Triglycerides 143 mg/dL
[2022-09-24 07:21] LABS: Thyroid Stimulating Hormone 2.15 uIU/mL (0.32-4.0)
[2022-09-24 07:26] LABS: Erythrocyte Sedimentation Rate 31 MM/HR (0-15)
== END 2022-09-24 06:13 | disposition home or self-care (01) ==
LOC: HO.HSH3N 06:12
PROVIDERS: Visit Provider Nurse Practitioner Acute Care
DX: Z13.89 Encounter for screening for other disorder (principal)
CPT/HCPCS: 36415; 80051; 80061; 80076; 84443; 84520; 85025; 85652; 86140

== ENCOUNTER 2022-10-01 06:38 | Outpatient (REF) | payer MEDICARE, SELFPAY ==
[2022-10-01 08:04] LABS: Valproate 22.5 mcg/mL (50.0-100.0)
== END 2022-10-01 06:39 | disposition home or self-care (01) ==
LOC: HO.HSH3N 06:38
PROVIDERS: Visit Provider Nurse Practitioner Acute Care
DX: F39 Unspecified mood [affective] disorder (principal); Z79.899 Other long term (current) drug therapy
CPT/HCPCS: 36415; 80164

== ENCOUNTER 2022-10-05 16:10 | Outpatient (REF) | payer MEDICARE, SELFPAY ==
--- NOTE | ~2022-10-05 | CT_ITS ---
EXAMINATION: CT CHEST WITHOUT CONTRAST CLINICAL INFORMATION: COPD. COMPARISON: CT abdomen 08/19/2021. TECHNIQUE: Multidetector volumetric CT imaging of the chest was done. Axial MIP volume rendering provided. Sagittal and coronal reformatted images were obtained. This CT examination was performed using dose optimization techniques as appropriate, variously including the following: *Automated exposure control *Adjustment of mA and/or kV according to patient size (this includes techniques or standardized protocols for targeted exams where dose is matched to indication/reason for exam; i.e. extremities or head) *Use of iterative reconstruction technique DLP: 138 mGy-cm FINDINGS: LUNGS: Severe upper lobe predominant centrilobular emphysema. Diffusely thick-walled airways consistent with COPD. No consolidation. Scattered micronodules. 9 x 8 mm pure groundglass nodule left lower lobe series 5 image 319 . MEDIASTINUM: No adenopathy. The thoracic aorta is normal in caliber with mild atherosclerotic disease. Moderate hiatal hernia. CORONARY ARTERY CALCIFICATION: Present. LAD and RCA calcium. PLEURA: There is no pleural effusion. No pleural mass or thickening. AXILLA: No lymphadenopathy. UPPER ABDOMEN: Renal vascular calcification. Cholecystectomy. OSSEOUS STRUCTURES: Degenerative changes in the spine. Presumed bone island left lateral sixth rib. Chronic T12 compression fracture, stable. CT/CT chest wo IV con IMPRESSION: Severe emphysema. Diffusely thick-walled airways consistent with chronic airways disease. 9 x 8 mm groundglass nodule left upper lobe. 2017 Fleischner Society Recommendations for Lung Nodule(s): Follow-Up based on size (average of long- and short-axis diameters). Use most suspicious nodule for followup. Single GG lung nodule >= 6 mm: Recommend a non-contrast Chest CT at 6-12 months to confirm persistence, then additional non-contrast Chest CTs every 2 years until 5 years. These guidelines do not apply to patients younger than 35 years, immunocompromised patients, and patients with cancer. Follow up in patients with significant comorbidities as clinically warranted. For lung cancer screening, adhere to Lung-RADS guidelines. Reference: Radiology. 2017 Hayes; 284(1):228-243 Fleischner guidelines were followed.
== END 2022-10-05 16:11 | disposition home or self-care (01) ==
LOC: HO.CT 16:10
PROVIDERS: PCP Nurse Practitioner Acute Care; Visit Provider Nurse Practitioner Acute Care
DX: J44.9 Chronic obstructive pulmonary disease, unspecified (principal)
CPT/HCPCS: 71250

== ENCOUNTER 2022-10-25 16:41 | Outpatient (REF) | payer MEDICARE, SELFPAY ==
[2022-10-25 17:37] LABS: Erythrocyte Sedimentation Rate 38 MM/HR (0-15)
== END 2022-10-25 16:42 | disposition home or self-care (01) ==
LOC: HO.HSH3N 16:41
PROVIDERS: Visit Provider Nurse Practitioner Acute Care
DX: I77.6 Arteritis, unspecified (principal)
CPT/HCPCS: 36415; 85652; 86140

== ENCOUNTER 2022-11-27 07:08 | Outpatient (REF) | payer MEDICARE, SELFPAY ==
[2022-11-27 08:11] LABS: HCG Quantitative < 2 mIU/mL; Prostate Specific Antigen 0.36 ng/mL (<0.05-4.0)
[2022-11-29 13:13] LABS: Alpha Fetoprotein 5.2 ng/mL (<6.1)
== END 2022-11-27 07:09 | disposition home or self-care (01) ==
LOC: HO.HSH3N 07:08
PROVIDERS: Visit Provider Nurse Practitioner Acute Care
DX: C62.90 Malignant neoplasm of unspecified testis, unspecified whether descended or undescended (principal); Z12.5 Encounter for screening for malignant neoplasm of prostate
CPT/HCPCS: 36415; 82105; 84153; 84702

== ENCOUNTER 2023-02-01 05:34 | Outpatient (REF) | payer MEDICARE, SELFPAY ==
[2023-02-01 07:35] LABS: Anion Gap 14 (12-20); Blood Urea Nitrogen 20 mg/dL (9-16); C Reactive Protein 0.59 mg/dL (< or = 0.50); Calcium 8.8 mg/dL (8.4-10.2); Carbon Dioxide 25 mmol/L (22-29); Chloride 104 mmol/L (96-108); Estimated Glomerular Filt Rate > 60; Glucose Fasting 97 mg/dL (60-99); Potassium 4.2 mmol/L (3.3-5.1); Sodium 139 mmol/L (135-145)
[2023-02-01 07:53] LABS: Vitamin D 25-OH Total 58.7 ng/mL (>30)
[2023-02-01 07:58] LABS: Erythrocyte Sedimentation Rate 29 MM/HR (0-15)
== END 2023-02-01 05:35 | disposition home or self-care (01) ==
LOC: HO.HSH3N 05:34
PROVIDERS: Visit Provider Nurse Practitioner Acute Care
DX: M31.6 Other giant cell arteritis (principal); E55.9 Vitamin D deficiency, unspecified
CPT/HCPCS: 36415; 80048; 82306; 85652; 86140

== ENCOUNTER 2023-05-09 06:47 | Outpatient (REF) | payer MEDICARE, SELFPAY ==
[2023-05-09 07:44] LABS: Anion Gap 12 (12-20); Blood Urea Nitrogen 29 mg/dL (9-16); Calcium 8.6 mg/dL (8.4-10.2); Carbon Dioxide 28 mmol/L (22-29); Chloride 107 mmol/L (96-108); Estimated Glomerular Filt Rate > 60; Glucose Random 107 mg/dL (60-115); Potassium 4.3 mmol/L (3.3-5.1); Sodium 143 mmol/L (135-145)
== END 2023-05-09 06:48 | disposition home or self-care (01) ==
LOC: HO.HSH3N 06:47
PROVIDERS: Visit Provider Nurse Practitioner Acute Care
DX: K21.9 Gastro-esophageal reflux disease without esophagitis (principal); Z85.47 Personal history of malignant neoplasm of testis
CPT/HCPCS: 36415; 80048

== ENCOUNTER 2023-05-14 09:12 | Outpatient (REF) | payer MEDICARE, SELFPAY ==
--- NOTE | ~2023-05-14 | CT_ITS ---
STUDY: Unenhanced CT of the chest, IV contrast-enhanced CT of the abdomen INDICATION: Chronic pancreatitis COMPARISON: 10/05/2022. TECHNIQUE: Continuous helical imaging obtained through the chest without IV contrast. Reconstructed images performed in the coronal and sagittal planes. Axial high-resolution and MIP images also generated. Thereafter, following injection of 85 mL Omnipaque 350 IV contrast without adverse effect, continuous helical imaging of the abdomen performed. Reconstructed images performed in coronal and sagittal planes. This CT examination was performed using dose optimization techniques as appropriate, variously including the following: *Automated exposure control *Adjustment of mA and/or kV according to patient size (this includes techniques or standardized protocols for targeted exams where dose is matched to indication/reason for exam; i.e. 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 Hyper inflation with advanced centrilobular emphysema with upper lobe predominance. Bullous changes right apex. Right lower lobe and lingular atelectasis. 8 mm left lower lobe groundglass nodule, 6:110, also included on high-resolution imaging, less conspicuous than on previous study at which time maximum diameter was 9 mm. Stable 2 mm RUL subpleural nodule, 6:43. 4 mm lingular nodule, 6:160, not seen with certainty on previous study. Mediastinum: Unremarkable thyroid. Moderately sized hiatal hernia. No pathologic lymphadenopathy. Nonenlarged heart. No pericardial effusion. Mitral annular calcifications. Degree of coronary calcifications: Minimal. Nonaneurysmal aorta with atherosclerotic calcifications. Nonenlarged pulmonary arteries. Pleura: No effusions, pneumothoraces, thickening or masses. Chest wall and axilla: No pathologic lymphadenopathy. Upper abdomen: On noncontrast study, no significant change from previous. ABDOMEN: Hepatobiliary: Liver is normal in size and attenuation. No focal liver lesions. Mild intrahepatic biliary ductal dilatation especially in the left lobe. Extrahepatic bile ducts are not dilated. Status post cholecystectomy. Spleen and adrenal glands within normal limits. Pancreas is atrophic. Small calcification identified pancreatic head. No pancreatic lesions, ductal dilatation, peripancreatic inflammatory changes or fluid collections are seen. Kidneys and ureters: No hydroureteronephrosis. No significant perinephric stranding. Too small to characterize hypodensities are likely cysts. Bilateral nonobstructing punctate and 3 mm left lower pole renal calculi versus vascular calcifications. Gastrointestinal: Moderate hiatal hernia. Decompressed stomach, wall thickening not excluded. Nonobstructive bowel pattern. Moderate fecal retention. Diverticulosis without diverticulitis. Lymph nodes: No pathologic lymphadenopathy. Vessels: Atherosclerotic calcifications nonaneurysmal aorta. Normal caliber inferior vena cava. BONES AND SOFT TISSUES: Unchanged benign-appearing focus left sixth lateral rib, likely bone island. Demineralization, degenerative change and mild compressions. CT/CT abdomen w IV con IMPRESSION: Advanced emphysema. Stable to slightly smaller 8 mm left lower lobe groundglass nodule. Interval appearance of 4 mm new lingular nodule. Per Fleischner criteria for single groundglass nodule greater than [address] confirming presence, additional noncontrast CT every 2 years for 5 years. Atrophic pancreas with calcification. No CT evidence of acute pancreatitis. Mild intrahepatic biliary ductal dilatation which may not have been appreciated on previous unenhanced CT. Patient with history of cholecystectomy. Correlate with LFTs. Diverticulosis without diverticulitis. Too small to characterize renal hypodensities, likely cysts. Possible bilateral nonobstructing renal calculi.
[2023-05-14] MEDS: iohexoL 350 MG/ML 100 ML INFUS..BTL IV (09:55)
== END 2023-05-14 09:13 | disposition home or self-care (01) ==
LOC: HO.CT 09:12
PROVIDERS: Visit Provider Nurse Practitioner Acute Care
DX: K86.1 Other chronic pancreatitis (principal); J44.9 Chronic obstructive pulmonary disease, unspecified
CPT/HCPCS: 71250; 74160; Q9967

== ENCOUNTER 2023-12-10 06:54 | Outpatient (REF) | payer MEDICARE, SELFPAY ==
[2023-12-10 06:57] LABS: MANUAL DIFF FLAG NO
[2023-12-10 07:38] LABS: Basophils Percent Auto 0.6 % (0-2); Eosinophils Absolute Auto 0.1 X10*3/uL (0.0-0.4); Eosinophils Percent Auto 1.7 % (0-4); Hematocrit 29.5 % (42.0-52.0); Hemoglobin 9.6 g/dl (14.0-18.0); Imm Gran Abs Auto 0.17 X10*3/uL (0.00-0.03); Imm Gran Pct Auto 2.4 % (0.0-0.4); Lymphocytes Absolute Auto 1.2 X10*3/uL (1.2-4.9); Lymphocytes Percent Auto 16.4 % (20-40); Mean Corpuscular HGB Conc 32.5 g/dl (31.0-36.0); Mean Corpuscular Volume 98.3 fL (80.0-98.0); Mean Platelet Volume 8.9 fL (9.4-12.4); Monocytes Absolute Auto 0.7 X10*3/uL (0.1-1.2); Monocytes Percent Auto 10.2 % (2-11); Neutrophils Absolute Auto 4.9 x10*3/uL (2.0-8.3); Neutrophils Percent Auto 68.7 % (45-73); Platelet Count 616 X10*3/uL (160-400); Red Cell Distribution Width 13.1 % (11.0-16.0); White Blood Count 7.1 X10*3/uL (4.8-10.8)
[2023-12-10 07:57] LABS: Alanine Aminotransferase 37 U/L (0-40); Albumin Level 3.1 g/dL (3.5-5.0); Alkaline Phosphatase 62 U/L (39-117); Anion Gap 12 (12-20); Aspartate Amino Transferase 22 U/L (5-37); Bilirubin Total 0.2 mg/dL (0.0-1.0); Blood Urea Nitrogen 17 mg/dL (9-16); Calcium 8.5 mg/dL (8.4-10.2); Carbon Dioxide 28 mmol/L (22-29); Chloride 108 mmol/L (96-108); Estimated Glomerular Filt Rate > 60; Glucose Random 92 mg/dL (60-115); Potassium 3.8 mmol/L (3.3-5.1); Sodium 144 mmol/L (135-145); Total Protein 6.3 g/dL (6.5-8.0)
== END 2023-12-10 06:55 | disposition home or self-care (01) ==
LOC: HO.HSH3N 06:54
PROVIDERS: Visit Provider Nurse Practitioner Acute Care
DX: U07.1 COVID-19 (principal)
CPT/HCPCS: 36415; 80053; 85025

== ENCOUNTER 2023-12-13 06:35 | Outpatient (REF) | payer MEDICARE, SELFPAY ==
[2023-12-13 06:39] LABS: MANUAL DIFF FLAG NO
[2023-12-13 07:21] LABS: Basophils Percent Auto 0.4 % (0-2); Eosinophils Absolute Auto 0.3 X10*3/uL (0.0-0.4); Eosinophils Percent Auto 2.9 % (0-4); Hematocrit 30.9 % (42.0-52.0); Imm Gran Abs Auto 0.06 X10*3/uL (0.00-0.03); Imm Gran Pct Auto 0.7 % (0.0-0.4); Lymphocytes Absolute Auto 2.2 X10*3/uL (1.2-4.9); Lymphocytes Percent Auto 26.1 % (20-40); Mean Corpuscular HGB Conc 32.4 g/dl (31.0-36.0); Mean Corpuscular Hemoglobin 32.3 pg (27.0-33.0); Mean Corpuscular Volume 99.7 fL (80.0-98.0); Mean Platelet Volume 8.7 fL (9.4-12.4); Monocytes Absolute Auto 0.6 X10*3/uL (0.1-1.2); Monocytes Percent Auto 6.7 % (2-11); Neutrophils Absolute Auto 5.4 x10*3/uL (2.0-8.3); Neutrophils Percent Auto 63.2 % (45-73); Platelet Count 652 X10*3/uL (160-400); Red Cell Distribution Width 13.4 % (11.0-16.0); White Blood Count 8.5 X10*3/uL (4.8-10.8)
[2023-12-13 07:45] LABS: Alanine Aminotransferase 22 U/L (0-40); Albumin Level 3.4 g/dL (3.5-5.0); Alkaline Phosphatase 62 U/L (39-117); Anion Gap 17 (12-20); Aspartate Amino Transferase 19 U/L (5-37); Bilirubin Total 0.1 mg/dL (0.0-1.0); Blood Urea Nitrogen 25 mg/dL (9-16); Calcium 8.6 mg/dL (8.4-10.2); Carbon Dioxide 25 mmol/L (22-29); Chloride 108 mmol/L (96-108); Estimated Glomerular Filt Rate > 60; Glucose Random 81 mg/dL (60-115); Sodium 146 mmol/L (135-145); Total Protein 7.1 g/dL (6.5-8.0)
== END 2023-12-13 06:36 | disposition home or self-care (01) ==
LOC: HO.HSH3N 06:35
PROVIDERS: Visit Provider Nurse Practitioner
DX: U07.1 COVID-19 (principal)
CPT/HCPCS: 36415; 80053; 85025

== ENCOUNTER 2023-12-16 07:45 | Outpatient (REF) | payer MEDICARE, SELFPAY ==
[2023-12-16 07:49] LABS: MANUAL DIFF FLAG NO
[2023-12-16 08:33] LABS: Basophils Percent Auto 0.3 % (0-2); Eosinophils Absolute Auto 0.2 X10*3/uL (0.0-0.4); Eosinophils Percent Auto 3.2 % (0-4); Hematocrit 28.3 % (42.0-52.0); Imm Gran Abs Auto 0.04 X10*3/uL (0.00-0.03); Imm Gran Pct Auto 0.6 % (0.0-0.4); Lymphocytes Absolute Auto 2.7 X10*3/uL (1.2-4.9); Lymphocytes Percent Auto 37.3 % (20-40); Mean Corpuscular HGB Conc 31.8 g/dl (31.0-36.0); Mean Corpuscular Hemoglobin 31.6 pg (27.0-33.0); Mean Corpuscular Volume 99.3 fL (80.0-98.0); Mean Platelet Volume 9.4 fL (9.4-12.4); Monocytes Absolute Auto 0.5 X10*3/uL (0.1-1.2); Monocytes Percent Auto 7.2 % (2-11); Neutrophils Absolute Auto 3.7 x10*3/uL (2.0-8.3); Neutrophils Percent Auto 51.4 % (45-73); Platelet Count 558 X10*3/uL (160-400); Red Blood Count 2.85 X10*6/uL (4.60-5.80); Red Cell Distribution Width 13.3 % (11.0-16.0); White Blood Count 7.2 X10*3/uL (4.8-10.8)
[2023-12-16 08:45] LABS: Alanine Aminotransferase 14 U/L (0-40); Alkaline Phosphatase 54 U/L (39-117); Anion Gap 16 (12-20); Aspartate Amino Transferase 16 U/L (5-37); Bilirubin Total 0.1 mg/dL (0.0-1.0); Blood Urea Nitrogen 19 mg/dL (9-16); Calcium 8.5 mg/dL (8.4-10.2); Carbon Dioxide 25 mmol/L (22-29); Chloride 106 mmol/L (96-108); Estimated Glomerular Filt Rate > 60; Glucose Random 88 mg/dL (60-115); Sodium 143 mmol/L (135-145); Total Protein 6.3 g/dL (6.5-8.0)
== END 2023-12-16 07:46 | disposition home or self-care (01) ==
LOC: HO.HSH3N 07:45
PROVIDERS: Visit Provider Nurse Practitioner
DX: U07.1 COVID-19 (principal)
CPT/HCPCS: 36415; 80053; 85025

== ENCOUNTER 2023-12-18 06:26 | Outpatient (REF) | payer MEDICARE, SELFPAY ==
[2023-12-18 07:37] LABS: Iron 50 mcg/dL (45-160); Percent Iron Saturation 31 % (15-50); Total Iron Binding Capacity 161 mcg/dL (228-428); Unsaturated Iron Binding 111 ug/dL
[2023-12-18 07:58] LABS: Vitamin B12 1007 pg/mL (200-900)
== END 2023-12-18 06:27 | disposition home or self-care (01) ==
LOC: HO.HSH3N 06:26
PROVIDERS: Visit Provider Nurse Practitioner
DX: D64.9 Anemia, unspecified (principal)
CPT/HCPCS: 36415; 82607; 83540

== ENCOUNTER 2024-01-24 06:07 | Outpatient (REF) | payer MEDICARE, SELFPAY ==
[2024-01-24 06:40] LABS: Basophils Absolute Auto 0.1 X10*3/uL (0.0-0.2); Basophils Percent Auto 0.8 % (0-2); Eosinophils Absolute Auto 0.3 X10*3/uL (0.0-0.4); Hematocrit 27.9 % (42.0-52.0); Hemoglobin 9.1 g/dl (14.0-18.0); Imm Gran Abs Auto 0.02 X10*3/uL (0.00-0.03); Imm Gran Pct Auto 0.3 % (0.0-0.4); Lymphocytes Absolute Auto 3.2 X10*3/uL (1.2-4.9); Lymphocytes Percent Auto 48.5 % (20-40); MANUAL DIFF FLAG SCAN; Mean Corpuscular HGB Conc 32.6 g/dl (31.0-36.0); Mean Corpuscular Hemoglobin 31.8 pg (27.0-33.0); Mean Corpuscular Volume 97.6 fL (80.0-98.0); Monocytes Absolute Auto 0.5 X10*3/uL (0.1-1.2); Monocytes Percent Auto 6.9 % (2-11); Neutrophils Absolute Auto 2.5 x10*3/uL (2.0-8.3); Neutrophils Percent Auto 38.5 % (45-73); Platelet Count 434 X10*3/uL (160-400); Red Blood Count 2.86 X10*6/uL (4.60-5.80); Red Cell Distribution Width 13.4 % (11.0-16.0); SCAN SMEAR FLAG 1; White Blood Count 6.5 X10*3/uL (4.8-10.8)
[2024-01-24 07:05] LABS: Alanine Aminotransferase 10 U/L (0-40); Albumin Level 3.3 g/dL (3.5-5.0); Alkaline Phosphatase 52 U/L (39-117); Anion Gap 13 (12-20); Aspartate Amino Transferase 16 U/L (5-37); Bilirubin Total 0.1 mg/dL (0.0-1.0); Blood Urea Nitrogen 11 mg/dL (9-16); Calcium 8.8 mg/dL (8.4-10.2); Carbon Dioxide 26 mmol/L (22-29); Chloride 104 mmol/L (96-108); Cholesterol 150 mg/dL (<200); Estimated Glomerular Filt Rate > 60; Glucose Random 91 mg/dL (60-115); HDL Cholesterol 41 mg/dL (>40); LDL Cholesterol Calculated 76 mg/dL (<100); Potassium 3.7 mmol/L (3.3-5.1); Sodium 139 mmol/L (135-145); Triglycerides 169 mg/dL (<150)
[2024-01-24 07:21] LABS: Prostate Specific Antigen < 0.10 ng/mL (<0.05-4.0)
[2024-01-24 07:23] LABS: Ferritin 232 ng/mL (20-250); Thyroid Stimulating Hormone 2.04 uIU/mL (0.32-4.0); Vitamin D 25-OH Total 72.3 ng/mL (>30)
[2024-01-24 07:47] LABS: Estimated Average Glucose 111 mg/dL; Hemoglobin A1c % 5.5 % (<6.0)
[2024-01-24 08:07] LABS: SLIDE REVIEW VERIFIED
[2024-01-31 06:24] LABS: Vitamin B1 28 nmol/L (8-30)
== END 2024-01-24 06:08 | disposition home or self-care (01) ==
LOC: HO.HSH3N 06:07
PROVIDERS: Visit Provider Nurse Practitioner Acute Care
DX: Z12.5 Encounter for screening for malignant neoplasm of prostate (principal); Z13.1 Encounter for screening for diabetes mellitus; Z13.6 Encounter for screening for cardiovascular disorders; D64.9 Anemia, unspecified; R53.83 Other fatigue; F32.A Depression, unspecified
CPT/HCPCS: 36415; 80053; 80061; 80164; 82306; 82728; 83036; 84153; 84425; 84443; 85025

== ENCOUNTER 2024-05-13 16:51 | Outpatient (REF) | payer MEDICARE, SELFPAY | END 2024-05-13 16:52 | disposition home or self-care (01) | LOC: HO.CT 16:51 | PROVIDERS: PCP Nurse Practitioner Acute Care; Visit Provider Nurse Practitioner Acute Care | DX: R91.1 Solitary pulmonary nodule (principal) | CPT/HCPCS: 71250 ==

== ENCOUNTER → 2024-05-13 16:58 | Outpatient (BNV) | payer MEDICARE, SELFPAY | PROVIDERS: PCP Nurse Practitioner Acute Care; Visit Provider Radiology Diagnostic Radiology | DX: J84.10 Pulmonary fibrosis, unspecified (principal) | CPT/HCPCS: 71250 ==

== ENCOUNTER 2025-02-26 07:51 | Outpatient (REF) | payer MEDICARE, SELFPAY ==
[2025-02-26 07:53] LABS: MANUAL DIFF FLAG NO
--- OUTSIDE RECORDS SUMMARY | 2025-02-26 07:54 | XMS_ITS | Encounter Summary ---
Author Organization [employer] Address [address] [facility] [address] [place] [address] Care Team Providers Care Appointment Specialist Name Role Phone Unavailable Primary Care Provider Unavailabl e Encounter Details Date Type Department Care Team (Late st Contact Info) Description 08/08/2023 Abstract [facility] [address] [place] [address] Alberto Sanz, DMD [address] [place] [address] Social History Tobacco Use Types Packs/Day Years Used Date Smoking Tobacco: Never Assessed Sex and Gender Information Value Date Recorded Sex Assigned at Male 04/30/2022 10:38 AM EDT Legal Sex Male 10:38 AM EDT Gender Identity Male 04/30/2022 10:38 AM EDT Sexual Orientation Straight 04/30/2022 10 :38 AM EDT documented as of this encounter Plan of Treatment Not on file documented as of this encounter Visit Diagnoses Not on filedocumented in this encounter
--- OUTSIDE RECORDS SUMMARY | 2025-02-26 07:54 | XMS_ITS | Clinical Summary ---
Author Organization [employer] Address [address] [facility] [address] [place] [address] Care Team Providers Care System Planning Engineer Name Role Phone Unavailable Primary Care Provider Unavailabl e Allergies No known active allergies Medications acetaminophen (Tylenol) 325 MG tablet Take 650 mg by mouth. 1 Active sertraline (Zoloft) 50 MG tablet Take 50 mg by mouth. 2 Active LORazepam (Ativan) 0.5 MG tablet Take by mouth. Activ e mirtazapine (Remeron) 30 MG tablet Take 30 mg by mouth at bedtime. Active sodium chloride ([place]) 0.65 % nasal spray Administer 1 spray into each nostril if needed for congestion. Active ondansetron (Zofran) 4 MG tablet Take 4 mg by mouth. Active omega-3 acid ethyl esters (Lovaza) 1 g capsule Take 1,000 mg by mouth 2 times daily. Active montelukast (Singulair) 10 MG tablet Take by mouth. Activ e loperamide (Imodium) 2 MG capsule Take 2 mg by mouth if needed in the morning, at noon, in the evening, and at bedtime for diarrhea. Active fluticasone (Flonase) 50 MCG/ACT nasal spray Administer 1 spray into each nostril Once per day. Shake gently. Before first use, prime pump. After use, clean tip and replace cap. Active ferrous sulfate 325 (65 Fe) MG tablet Take 325 mg by mouth with breakfast. Active cetirizine (ZyrTEC) 10 MG tablet Take by mouth. Activ e Multiple Vitamin (multivitamin) capsule Take 1 capsule by mouth Once per day. Active divalproex (Depakote ER) 250 MG 24 hr tablet Take 250 mg by mouth Once per day. Do not crush, chew, or split. Active alendronate (Fosamax) 70 MG/75ML solution Take 70 mg by mouth every 7 (seven) days. Take in the morning with a full glass of water, on an empty stomach, and do not take anything else by mouth or lie down for the next 30 min. Active pantoprazole (ProtoNix) 40 MG EC tablet Take 40 mg by mouth before breakfast. Do not crush, chew, or split. Active Active Problems Problem Noted Date Diagnosed Date Abnormality of gait 09/09/2024 Overview (09/09/2024): Apr 08, 2012 Entered By: GENNARO LIM Comment: ataxic, uses wheelchair Acute pancreatitis 09/09/2024 Overview (09/09/2024): Jun 27, 2009 Entered By: GENNARO LIM Comment: hx of Alcohol abuse, in remission 09/09/2024 Benign neoplasm of colon 09/09/2024 Calculus of kidney 09/09/2024 Dizziness and giddiness 09/09/2024 Esophageal stricture 09/09/2024 Finger injury 09/09/2024 Functional diarrhea 09/09/2024 Gastroduodenitis 09/09/2024 Hearing loss 09/09/2024 Hemorrhoids without complication 09/09/2024 Sprain of costal cartilage 09/09/2024 Tobacco use disorder 09/09/2024 Encounters Date Type Department Care Team Description 12/09/2024 3:15 PM EDT Office Visit [facility] [address] [place] [id number] Alberto Sanz DMD from Last 3 Months Social History Tobacco Use Types Packs/Day Years Used Date Smoking Tobacco: Unknown Tobacco Cessation:Counseling Given: Not Answered Alcohol Use Standard Drinks/Week Comments Defer 0 (1 standard drink = 0.6 oz pur e alcohol) Sex and Gender Information Value Date Recorded Sex Assigned at Male 04/30/2022 10:38 AM EDT Legal Sex Male 10:38 AM EDT Gender Identity Male 04/30/2022 10:38 AM EDT Sexual Orientation Straight 04/30/2022 10 :38 AM EDT Plan of Treatment Health Maintenance Due Date Last Done Comments Dental Prophylaxis 1944 Dental X-Ray: Bitewings 1944 Dental X-Ray: Full Mouth 1944 Depression Screening 1944 Lipid Panel 1944 SDOH Screening 1944 Alcohol/Substance Use Screening 1956 DTaP/Tdap/Td Vaccines (1 - Tdap) 10/30/1963 Zoster Vaccines (1 of 2) 1994 RSV Patients and Patients Aged 60 years or older (1 - 1-dose 75+ series) 10/30/2019 Pneumococcal Vaccine: 50+ Years (2 of 2 - PCV) 04/12/2023 04/12/2022, 06/12/2011 COVID-19 Vaccine ( season) 2024 04/19/2023, 03/27/2022, 08/16/2021, Additional history exists Influenza Vaccine (#1) 2025 , 04/03/2023, 06/17/2022, Additional history exists Dental Oral Exam 06/11/2025 12/09/2024, 05/2025, 08/07/2023, Additional history exists Tobacco Screening 12/09/2025 12/09/2024 HIB Vaccines Aged Out No longer eligi ble based on patient's age to complete this topic HPV Vaccines Aged Out No longer eligi ble based on patient's age to complete this topic Hepatitis A Vaccines Aged Out No long er eligible based on patient's age to complete this topic Hepatitis B Vaccines Aged Out No long er eligible based on patient's age to complete this topic IPV Vaccines Aged Out No longer eligi ble based on patient's age to complete this topic Meningococcal B Vaccine Aged Out No l onger eligible based on patient's age to complete this topic Meningococcal Vaccine Aged Out No megan tyson eligible based on patient's age to complete this topic RSV under 20 months Aged Out No longe r eligible based on patient's age to complete this topic Rotavirus Vaccines Aged Out No longer eligible based on patient's age to complete this topic Procedures Procedure Name Priority Date/Time Associated Diagnosis Comments CLEANING AND INSPECTION OF REM COMPLETE DENTURE, HONORIO Routine 12/09/2024 3:15 PM EDT CLEANING AND INSPECTION OF REM COMPLETE DENTURE, MAX Routine 12/09/2024 3:15 PM EDT PERIODIC ORAL EVALUATION - ESTABLISHED PATIENT Routine 12/09/2024 3:15 PM EDT from Last 3 Months
--- OUTSIDE RECORDS SUMMARY | 2025-02-26 07:54 | XMS_ITS | Encounter Summary ---
Author Organization [employer] Address [address] [facility] [address] [place] [address] Care Team Providers Care Dispatch Officer Name Role Phone Unavailable Primary Care Provider Unavailabl e Encounter Details Date Type Department Care Team (Late st Contact Info) Description 08/08/2023 Abstract [facility] [address] [place] [address] Alberto Sanz, DMD [address] [place] [address] Social History Tobacco Use Types Packs/Day Years [...]
[2025-02-26 08:43] LABS: Hematocrit 32.6 % (42.0-52.0); Hemoglobin 10.4 g/dl (14.0-18.0); Imm Gran Abs Auto 0.03 X10*3/uL (0.00-0.03); Imm Gran Pct Auto 0.5 % (0.0-0.4); Lymphocytes Absolute Auto 2.8 X10*3/uL (1.2-4.9); Mean Corpuscular HGB Conc 31.9 g/dl (31.0-36.0); Mean Corpuscular Hemoglobin 31.3 pg (27.0-33.0); Mean Corpuscular Volume 98.2 fL (80.0-98.0); NRBC Abs Auto 0.000 X10*3/uL (0.0-0.012); NRBC Pct Auto 0.0 /100WBC (0.0-0.2); Platelet Count 338 X10*3/uL (160-400); Red Blood Count 3.32 X10*6/uL (4.60-5.80); White Blood Count 6.1 X10*3/uL (4.8-10.8)
[2025-02-26 09:37] LABS: Alanine Aminotransferase 9 U/L (0-40); Albumin Level 3.6 g/dL (3.5-5.0); Alkaline Phosphatase 51 U/L (39-117); Anion Gap 13 (12-20); Aspartate Amino Transferase 18 U/L (5-37); Blood Urea Nitrogen 21 mg/dL (9-16); Calcium 8.3 mg/dL (8.4-10.2); Carbon Dioxide 24 mmol/L (22-29); Chloride 108 mmol/L (96-108); Estimated Glomerular Filt Rate > 60; Potassium 4.0 mmol/L (3.3-5.1); Sodium 141 mmol/L (135-145); Total Protein 6.3 g/dL (6.5-8.0)
[2025-02-26 09:41] LABS: Thyroid Stimulating Hormone 2.50 uIU/mL (0.32-4.0)
[2025-02-26 09:48] LABS: Prostate Specific Antigen < 0.10 ng/mL (<0.05-4.0); Vitamin B12 588 pg/mL (200-900)
== END 2025-02-26 07:52 | disposition home or self-care (01) ==
LOC: HO.HSH3N 07:51
PROVIDERS: Visit Provider Nurse Practitioner Acute Care
DX: N40.0 Benign prostatic hyperplasia without lower urinary tract symptoms (principal); E53.8 Deficiency of other specified B group vitamins; F32.A Depression, unspecified; Z12.5 Encounter for screening for malignant neoplasm of prostate
CPT/HCPCS: 36415; 80053; 82248; 82607; 84153; 84443; 85025

== ENCOUNTER 2025-03-10 14:31 | Outpatient (REF) | payer MEDICARE, SELFPAY ==
--- NOTE | ~2025-03-10 | CT_ITS ---
EXAMINATION: CT CHEST WITH IV CONTRAST INDICATION: RT SIDED SHARP SHOOTING PAIN, COPD COMPARISON: Comparison is made with the prior examination dated 05/13/2024. TECHNIQUE: Helical CT scan of the chest was performed following administration of intravenous contrast. Coronal and sagittal reformatted images were generated and reviewed. This CT exam was performed with one or more of the following dose reduction techniques: automated exposure control, adjustment of the mA and/or kV according to patient size, use of iterative reconstruction technique. DLP: 92 mGy-cm CHEST: THYROID: The thyroid is unremarkable. LUNGS: There is moderate to severe emphysema. There is a 12 mm somewhat linear opacity at the right lung apex which likely represents scarring but appears more prominent than on the prior study. There is a tiny 5 mm similar appearing opacity more inferiorly in the right upper lobe (series 4, image 56). There is bronchial wall thickening and partial opacification of both lower lobes suggestive of bronchitis. MEDIASTINUM: There is no mediastinal lymphadenopathy. RICK: There is no hilar lymphadenopathy. CARDIOVASCULATURE: The heart is normal in size. There is no pericardial effusion. The thoracic aorta is normal in caliber. DEGREE OF CORONARY CALCIFICATION: mild PLEURA: There is no pleural effusion. No pneumothorax. MAIN AIRWAYS: The mainstem bronchi and proximal branches are patent. AXILLA: There is no axillary lymphadenopathy. BONES AND SOFT TISSUES: There is a healing fracture of the anterior aspect of the right 3rd rib. UPPER ABDOMEN: There is a small hiatal hernia. The visualized portions of the liver, spleen, and adrenals are unremarkable. CT/CT chest w IV con IMPRESSION: 1. Healing fracture of the anterior aspect of the right 3rd rib. 2. Moderate to severe emphysema. Bronchial wall thickening and partial opacification in the lower lobes, suggestive of bronchitis. 3. Areas of probable scarring in the right upper lobe which are more prominent than on the prior study. A follow-up examination in 6 months is recommended. 4. Because moderate severe emphysema is an independent risk factor for lung cancer, consider entering the patient into a program of yearly lung cancer screening with low dose chest CT. Electronically signed by: Kanu Christiansen MD 03/10/2025 03:21 PM EDT RP
[2025-03-10] MEDS: iohexoL 350 MG/ML 100 ML INFUS..BTL IV (15:11)
--- OUTSIDE RECORDS SUMMARY | 2025-03-10 17:48 | XMS_ITS | Encounter Summary ---
Author Organization [employer] 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
--- OUTSIDE RECORDS SUMMARY | 2025-03-10 17:48 | XMS_ITS | Encounter Summary ---
Author Organization [employer] Address [address] [facility] [address] [place] [address] Care Team Providers Care Rn Observation Name Role Phone Unavailable Primary Care Provider Unavailabl e Encounter Details Date Type Department Care Team (Late st Contact Info) Description 08/08/2023 Abstract [facility] [address] [place] [address] Alberto Sanz, DMD [address] [place] [address] Social History Tobacco Use Types Packs/Day Years [...]
--- OUTSIDE RECORDS SUMMARY | 2025-03-10 17:48 | XMS_ITS | Clinical Summary ---
Author Organization [employer] Address [address] [facility] [address] [place] [address] Care Team Providers Care Creel Cleaner Name Role Phone Unavailable Primary Care Provider [...] by mouth at bedtime. Active sodium chloride ([place]) 0.65 % nasal spray Administer 1 spray [...] Description 12/09/2024 3:15 PM EDT Office Visit [facility] [address] [place] [id number] Alberto Sanz DMD from Last 3 Months [...] 04/12/2023 04/12/2022, 06/12/2011 COVID-19 Vaccine ( season) 2025 04/19/2023, 03/27/2022, 08/16/2021, Additional history exists Influenza [...]
== END 2025-03-10 14:32 | disposition home or self-care (01) ==
LOC: HO.CT 14:31
PROVIDERS: PCP Nurse Practitioner Acute Care; Visit Provider Registered Nurse
DX: J44.9 Chronic obstructive pulmonary disease, unspecified (principal)
CPT/HCPCS: 71260; Q9967

== ENCOUNTER → 2025-03-10 14:34 | Outpatient (BNV) | payer MEDICARE, SELFPAY | PROVIDERS: PCP Nurse Practitioner Acute Care; Visit Provider Radiology Diagnostic Radiology | DX: J43.9 Emphysema, unspecified (principal) | CPT/HCPCS: 71260 ==

== ENCOUNTER 2025-03-12 06:32 | Outpatient (REF) | payer MEDICARE, SELFPAY ==
--- OUTSIDE RECORDS SUMMARY | 2025-03-12 06:37 | XMS_ITS | Encounter Summary ---
Author Organization [employer] Address [address] [facility] [address] [place] [address] Care Team Providers Care Geography Faculty Member Name Role Phone Unavailable Primary Care Provider Unavailabl e Encounter Details Date Type Department Care Team (Late st Contact Info) Description 08/08/2023 Abstract [facility] [address] [place] [address] Alberto Sanz, DMD [address] [place] [address] Social History Tobacco Use Types Packs/Day Years [...]
--- OUTSIDE RECORDS SUMMARY | 2025-03-12 06:37 | XMS_ITS | Encounter Summary ---
Author Organization [employer] Address [address] [facility] [address] [place] [address] Care Team Providers Care Spare Fixer Name Role Phone Unavailable Primary Care Provider Unavailabl e Encounter Details Date Type Department Care Team (Late st Contact Info) Description 08/08/2023 Abstract [facility] [address] [place] [address] Alberto Sanz, DMD [address] [place] [address] Social History Tobacco Use Types Packs/Day Years [...]
--- OUTSIDE RECORDS SUMMARY | 2025-03-12 06:37 | XMS_ITS | Clinical Summary ---
Author Organization [employer] Address [address] [facility] [address] [place] [address] Care Team Providers Care Manager Presentation Name Role Phone Unavailable Primary Care Provider [...] by mouth at bedtime. Active sodium chloride ([place]) 0.65 % nasal spray Administer 1 spray [...] costal cartilage 09/09/2024 Tobacco use disorder 09/09/2024 Social History Tobacco Use Types Packs/Day Years [...] Procedure Name Priority Date/Time Associated Diagnosis Comments PERIODIC ORAL EVALUATION - ESTABLISHED PATIENT Routine 12/09/2024 3:15 PM EDT from Last 3 Months or Most Recently Relevant to Health Maintenance
== END 2025-03-12 06:33 | disposition home or self-care (01) ==
LOC: HO.HSH3N 06:32
PROVIDERS: Visit Provider Nurse Practitioner Acute Care
DX: E55.9 Vitamin D deficiency, unspecified (principal)
CPT/HCPCS: 36415; 82306; 82652